=== PATIENT | male | born 1940 | race Caucasian/White ===

== ENCOUNTER 2022-08-15 21:08 | Inpatient (IN) | payer MEDICAID ==
[~2022-08-15] VITALS: Ht 188 cm; Wt 98.0 kg
--- NOTE | 2022-08-15 21:08 | NUR ---
PT SHARRON ALS. TAKEN TO BED 1
--- NOTE | 2022-08-15 21:12 | NUR ---
ARRIVED BY ACLS PARAMEDICS. PT BROUGHT IN FROM [facility]. PT BROUGHT IN FOR ABNORMAL LABS. PER ADJUNCT MATHEMATICS INSTRUCTOR IEM=[id number]. C/O DECREASED URINE OUTPUT AND BLOOD IN THE URINE. PT HAS A HX OF ENCEPHALOPATHY. PER ADJUNCT MATHEMATICS INSTRUCTOR, PT'S MENTATION IS AT BASELINE. PT WITHDRAWS TO PAINFUL STIMULI. HX OF RESPITORY FAILURE. RT AT BS. CONNECTED TRACH TO VENT. G-TUBE IN PLACE. F/C IN PLACE. +BILATERAL UPPER EXTREMITY EDEMA NOTED. PT AWAITING TO BE SEEN.
[2022-08-15 21:13] VITALS: BP 121/61; PULSE 85; RESP 20; TEMP 98.2; O2SAT 98
[2022-08-15 21:23] VITALS: PULSE 81; PULSE 88; RESP 18; O2SAT 100
--- NOTE | 2022-08-15 21:41 | NUR ---
EKG IN PROGRESS.
[2022-08-15 22:23] LABS: HEMATOCRIT 25.7 % (36-52); HEMOGLOBIN 8.5 g/dL (12.0-18.0); MEAN CORPUSCULAR HEMOGLOBIN 29 pg (27-31); MEAN CORPUSCULAR HGB CONC 33 g/dL (33-37); MEAN CORPUSCULAR VOLUME 88.7 fL (80-94); PLATELET COUNT (AUTO) 85 K/uL (140-450); RED BLOOD CELL COUNT(AUTO) 2.89 MIL/uL (4.20-6.10); RED CELL DISTRIBUTION WIDTH 17.9 % (11.6-13.7); WHITE BLOOD COUNT (AUTO) 24.1 K/uL (4.8-10.8)
[2022-08-15 22:29] LABS: PROTHROMBIN TIME 10.8 secs (10.8-13.4)
[2022-08-15 22:32] LABS: ALBUMIN 2.3 g/dL (3.4-5.0); ASPARTATE AMINOTRANSFERASE 57 U/L (15-37); CARBON DIOXIDE 29.1 mmol/L (21-32); CHLORIDE 91 mmol/L (98-107); CREATININE 3.9 mg/dL (0.6-1.3); GLUCOSE 104 mg/dL (74-106); POTASSIUM 5.1 mmol/L (3.5-5.1); SODIUM SERUM 130 mmol/L (136-145); TOTAL BILIRUBIN 1.2 mg/dL (0.0-1.0)
[2022-08-15 22:37] LABS: UREA NITROGEN, BLOOD 130 mg/dL (7-18)
[2022-08-15 22:57] LABS: BASOPHILS % (MANUAL) 0 % (0-2); EOSINOPHILS % (MANUAL) 0 % (0-4); MONOCYTES % (MANUAL) 2 % (5-12)
[2022-08-15 22:58] LABS: BLASTS, MANUAL % 3 % (0-0); LYMPHOCYTES % (MANUAL) 12 % (20-46); METAMYELOCYTES % 5 % (0-0); MYELOCYTES % 2 % (0-0)
[2022-08-15] MEDS ORDERED: NACL 0.9% 1,000 ML IV ONE ×2 (23:10)
[2022-08-15] MEDS ORDERED: VANCOMYCIN 1,000 MG in DEXTROSE 5% 250 ML IV ONE (23:10)
[2022-08-15] MEDS ORDERED: PIPERACILLIN/TAZOBACTAM 3.375 GM in DEXTROSE 5% 50 ML IV ONE (23:10)
[2022-08-15 23:23] LABS: APPEARANCE,URINE TURBID (CLEAR); BILIRUBIN,URINE NEGATIVE (NEGATIVE); BLOOD, URINE 3+ (NEGATIVE); COLOR,URINE RED (YELLOW); LEUKOCYTE ESTERASE ,URINE 3+ (NEGATIVE); NITRITE, URINE POSITIVE (NEGATIVE); UGLUCOSE TRACE (NEGATIVE)
[2022-08-15 23:34] LABS: RBC,URINE TOO NUMEROUS TO COUN /HPF (0-5); RED BLOOD CELL CASTS,URINE 0-10 /LPF (None Seen); YEAST,URINE None Seen /HPF (None Seen)
[2022-08-15] MEDS ORDERED: PIPERACILLIN/TAZOBACTAM 3.375 GM VIAL IV ONE (23:37)
[2022-08-15] MEDS ORDERED: VANCOMYCIN 1,000 MG VIAL ONE (23:38)
[2022-08-16] VITALS (22 sets, daily range): BP systolic 97–172; BP diastolic 39–79; PULSE 57–89; RESP 11–17; TEMP 97–98.3; O2SAT 98–100
--- NOTE | 2022-08-16 00:01 | NUR ---
MD. AWARE OF PT'S HYPOTENSION. 2L FLUID BOLUS WIDE OPEN INFUSING AT THIS TIME. MD TO REASSESS HYPOTENSION ONCE FLUID BOLUS IS CONCLUDED.
[2022-08-16] MEDS ORDERED: VANCOMYCIN PER PHARMACY MC PRN (00:10)
[2022-08-16] MEDS ORDERED: DEXTROSE 50% 50 ML SYR IVP PRN (00:10)
[2022-08-16] MEDS ORDERED: NOREPINEPHRINE 8 MG in DEXTROSE 5% 250 ML IV PRN (00:10)
[2022-08-16] MEDS ORDERED: LACTATED RINGERS 1,000 ML IV ONE (00:10)
[2022-08-16] MEDS ORDERED: INSULIN LISPRO SLIDING SCALE 100 UNITS/ML VIAL SUBQ PRN (00:10)
[2022-08-16] MEDS ORDERED: NOREPINEPHRINE 4 MG/4 ML VIAL IV ONE ×2 (00:11→10:35)
--- NOTE | 2022-08-16 00:34 | NUR ---
LEVOPHED WAS STARTED ORDERED. LEVOPHED INITIATED AT 12 MCG/MIN=22.5ML/HR. 8 MG IN 250ML NS BAG. WILL TITRATE ORDERED.
--- NOTE | 2022-08-16 01:10 | NUR ---
PT TOLERATING LEVOPHED DRIP WELL. BP WNL. PT TO BE ADMITTED INTO ICU. HOLDING IN ER AT THIS TIME.
--- NOTE | 2022-08-16 02:11 | NUR ---
DECREASED LEVOPHED TO 10MG/MIN=18.75ML.
--- NOTE | 2022-08-16 02:30 | NUR ---
PT HAD LARGE AMOUNT OF LOOSE LIQUID STOOL BM. DANYELL-CARE PERFORMED WITH COMPLETE LINEN CHANGE.
--- NOTE | 2022-08-16 03:15 | NUR ---
INCREASED LEVOPHED TO 11MCG/MIN=20.62ML/HR. MONITORING BP.
--- NOTE | 2022-08-16 03:19 | NUR ---
PT TAKEN TO CT
--- NOTE | 2022-08-16 04:04 | NUR ---
Patient noted to have existing wounds upon arrival to ER. Photos taken of wound and placed in chart. Physician informed.
[2022-08-16] MEDS ORDERED: PIPERACILLIN/TAZOBACTAM 3.375 GM in DEXTROSE 5% 50 ML IV SCH ×2 (05:00→13:00)
[2022-08-16] MEDS ORDERED: PANT40GR GT (05:31)
[2022-08-16] MEDS ORDERED: ACET-2619 GT (05:31)
[2022-08-16] MEDS ORDERED: VITA1TAB44 PO (05:31)
[2022-08-16] MEDS ORDERED: ATRMDI INH (05:31)
[2022-08-16] MEDS ORDERED: INSU100S5 (05:31)
[2022-08-16] MEDS ORDERED: CHLO473L1 PO (05:31)
[2022-08-16] MEDS ORDERED: [UNRECOGNIZED DRUG - CODE] GT (05:31)
[2022-08-16] MEDS ORDERED: METO5SOL19 GT (05:31)
[2022-08-16] MEDS ORDERED: PIPERACILLIN/TAZOBACTAM 2.25 GM VIAL IV ONE (05:40)
--- NOTE | 2022-08-16 05:50 | NUR ---
PT TRANSFERED TO ICU BED 5. PT ENDORSED TO HEATHER DIMAS. PT WAS TRANSFERED VIA GURNEY ESCORTED BY RN, ER CHARGE, EMT, AND RT. PT IN GAURDED CONDITION. LEVOPHED DRIP AND LR ON GOING. PT TOLERATED TRANSFER. BS REPORT PROVIDED. CHART ENDORSED TO HEATHER.
[2022-08-16] MEDS: PIPERACILLIN/TAZOBACTAM 2.25 GM in DEXTROSE 5% 50 ML IV SCH ×3 (05:54→20:39)
--- NOTE | 2022-08-16 05:55 | NUR ---
Pt. arrived to ICU bed 5, with trach in place and ventilator as well. RN and respiratory therapist with pt. at arrival. Pt. immediately placed on heart monitor and ICU admission done. Pt. with no acute distress. NO sob, Levophed drip in place to left femoral central line in place. Samuels cath in place draining yellow urine. Will cont. to monitor.
--- NOTE | 2022-08-16 07:30 | NUR ---
Report given to Betty ROMERO day shift nurse. Pt. with no acute distress. No change in status.
[2022-08-16] MEDS ORDERED: MAG SULF 2000 MG/WATER PREMIX 50 ML IV PRN (08:00)
--- NOTE | 2022-08-16 08:00 | NUR ---
Received report from charge nurse HEATHER Grijalva. Pt orally intubated with tracheostomy to vent in place. Vent SIMV FIO2 30%, VT 450, RR 10, Peep 5, Flow at 30L. Patient asleep with LR, Levophed, and Zosyn infusing to the left femoral PICC line with dressing in place. No redness or ecchymosis to insertion site. Pt unable to responds to physical stimulation with sternal rub or shaking. Upon auscultation crackles noted in patients lobes. Patient has GTube currently NPO. Abdomen soft with all quadrants hyperactive. Patient skin is not intact with sacral DTI and dried scabs on right heel. Penis swollen with ramirez catheter in place with yellow urine mixed with small specks of blood. No dependent loops. HOB of bed at 30 degrees to prevent aspiration, bed of wheels locked and bed in lowest position, no acute distress or SOB noted. Will continue to follow plan of care.
[2022-08-16] MEDS: LACTATED RINGERS 1,000 ML IV SCH ×2 (09:10→21:35)
[2022-08-16] MEDS ORDERED: ACETAMINOPHEN 325 MG TAB GT PRN (09:15)
[2022-08-16] MEDS ORDERED: ONDANSETRON 4 MG/2 ML VIAL IVP PRN (09:20)
[2022-08-16] MEDS ORDERED: MORPHINE SULFATE 2 MG/ML SYR IVP PRN (09:20)
[2022-08-16] MEDS ORDERED: LORazepam 2 MG/ML VIAL IVP PRN (09:20)
[2022-08-16] MEDS ORDERED: ZOLPIDEM 5 MG TAB PO PRN (09:20)
[2022-08-16] MEDS ORDERED: POTASSIUM CHLORIDE 20% 40 MEQ/15 ML UDC PO PRN (09:20)
[2022-08-16] MEDS ORDERED: ACETAMINOPHEN 650 MG/20.3 ML UDC PO PRN (09:20)
[2022-08-16] MEDS ORDERED: DOCUSATE 100 MG/10 ML UDC PO PRN (09:20)
--- NOTE | 2022-08-16 09:25 | NUR ---
Dr. De Los Santos rounded at patients bedside. wants patients tracheostomy sutures to be removed by RT. Will continue to follow plan of care.
--- NOTE | 2022-08-16 09:42 | NUR ---
PATIENT HAS BEEN SCREENED AND CATEGORIZED HIGH NUTRITION RISK. PATIENT WILL BE SEEN WITHIN 1-2 DAYS OF ADMISSION. 08/16/22-08/18/[address]
--- NOTE | 2022-08-16 10:22 | NUR ---
Dr. Spicer rounded at patients bedside. No new orders received.
--- NOTE | 2022-08-16 10:30 | NUR ---
Received call from dental laboratory technology teacher Mary Kate regarding patients high troponin level of 443.
--- NOTE | 2022-08-16 10:38 | NUR ---
Notified MD Spicer regarding patients troponin levels of 443. Will continue to follow plan of care.
--- NOTE | 2022-08-16 10:42 | NUR ---
Received orders from MD Spicer regarding patients Troponin levels. MD ordered Aspirin 325mg. Will continue to follow plan of care.
--- NOTE | 2022-08-16 11:35 | NUR ---
Spoke with Santi from RT regarding patients removal of tracheostomy stitches. Will continue to follow plan of care.
[2022-08-16] MEDS ORDERED: IPRATROPIUM BROMIDE 17 MCG INH SCH (12:00)
[2022-08-16] MEDS: BLOOD GLUCOSE MONITORING 1 DEV DEV FS SCH ×3 (12:59→21:19)
[2022-08-16] MEDS ORDERED: ACETAMINOPHEN 650 MG/20.3 ML UDC GT PRN (13:48)
--- NOTE | 2022-08-16 19:20 | NUR ---
Endorsed report to practice architect charge nurse HEATHER Reilly for continuity of care.
--- NOTE | 2022-08-16 19:40 | NUR ---
RECEIVED REPORT FROM DAY SHIFT NURSE. PATIENT LYING DOWN IN BED SLEEPING WITH HOB AT 30 DEGREES, SLIGHTLY AROUSABLE TO SHAKING. ON TRACH TO VENT WITH O2 SAT 100%, VENT SETTING SIMV/VC FIO2 28,VT 250, RATE 10,PEEP 5. NO DISTRESS NOTED. SR TO SB ON CASEWORKER. WITH TRIPLE LUMEN LEFT UPPER THIGH FEMORAL LINE INTACT, PATENT, AND INFUSING IVF AND DRIPS PER MD ORDERS. G TUBE IN PLACE ON LEFT UPPER QUADRANT. MARTIN CATH IN PLACE. STAGE 2 ULCER ON SACRAL AREA. REVIEWED PLAN OF CARE WITH PATIENT, PT UNABLE TO COMPREHEND. SAFETY MEASURES IN PLACE. WILL CONTINUE TO MONITOR. Addendum: 08/17/22 at 0352 by HILTON HARRIS RN CORRECTION NOTE: RECEIVED REPORT FROM DAY SHIFT NURSE. PATIENT LYING DOWN IN BED SLEEPING WITH HOB AT 30 DEGREES, SLIGHTLY AROUSABLE TO SHAKING. ON TRACH TO VENT WITH O2 SAT 100%, VENT SETTING SIMV/VC FIO2 28,VT 250, RATE 10,PEEP 5. NO DISTRESS NOTED. SR TO SB ON CASEWORKER. WITH TRIPLE LUMEN LEFT UPPER THIGH FEMORAL LINE INTACT, PATENT, AND INFUSING IVF AND DRIPS PER MD ORDERS. G TUBE IN PLACE ON LEFT UPPER QUADRANT. MARTIN CATH IN PLACE. OPEN WOUND TO SACRAL AREA. REVIEWED PLAN OF CARE WITH PATIENT, PT UNABLE TO COMPREHEND. SAFETY MEASURES IN PLACE. WILL CONTINUE TO MONITOR.
--- NOTE | 2022-08-16 22:00 | NUR ---
DANYELL CARE DONE, CHANGED UNDERPAD AND PUT DRESSING ON SACRAL WOUND.
[2022-08-17] VITALS (32 sets, daily range): BP systolic 88–139; BP diastolic 46–68; PULSE 50–61; RESP 10–22; TEMP 86–98.4; O2SAT 96–100
--- NOTE | 2022-08-17 01:00 | NUR ---
PT IS RESTING. WILL CONTINUE TO MONITOR.
[2022-08-17] MEDS ORDERED: Z-GUARD PASTE TP PRN (03:55)
[2022-08-17] MEDS: PIPERACILLIN/TAZOBACTAM 2.25 GM in DEXTROSE 5% 50 ML IV SCH ×3 (05:16→20:54)
[2022-08-17 05:23] LABS: BASOPHILS % (AUTO) 0.2 % (0.0-2.0); EOSINOPHILS # (AUTO) 0.3 K/uL (0-0.4); EOSINOPHILS % (AUTO) 3.5 % (0.0-4.0); HEMATOCRIT 24.4 % (36-52); HEMOGLOBIN 8.3 g/dL (12.0-18.0); LYMPHOCYTES # (AUTO) 0.9 K/uL (2.0-11.5); LYMPHOCYTES % (AUTO) 9.3 % (20.5-51.1); MEAN CORPUSCULAR HEMOGLOBIN 30 pg (27-31); MEAN CORPUSCULAR HGB CONC 34 g/dL (33-37); MEAN CORPUSCULAR VOLUME 88.2 fL (80-94); MONOCYTES # (AUTO) 0.4 K/uL (0.8-1.0); MONOCYTES % (AUTO) 4.2 % (1.7-9.3); NEUTROPHILS # (AUTO) 7.7 K/uL (1.8-7.7); NEUTROPHILS % (AUTO) 82.8 % (42.2-75.2); PLATELET COUNT (AUTO) 52 K/uL (140-450); RED BLOOD CELL COUNT(AUTO) 2.77 MIL/uL (4.20-6.10); RED CELL DISTRIBUTION WIDTH 18.3 % (11.6-13.7); WHITE BLOOD COUNT (AUTO) 9.3 K/uL (4.8-10.8)
[2022-08-17 06:12] LABS: ANION GAP 9.9 (8-16); CARBON DIOXIDE 29.7 mmol/L (21-32); CHLORIDE 100 mmol/L (98-107); CREATININE 3.4 mg/dL (0.6-1.3); GLUCOSE 93 mg/dL (74-106); POTASSIUM 4.6 mmol/L (3.5-5.1); SODIUM SERUM 135 mmol/L (136-145)
[2022-08-17 06:18] LABS: UREA NITROGEN, BLOOD 112 mg/dL (7-18)
--- NOTE | 2022-08-17 06:30 | NUR ---
LAB RESULT WAS REPORTED BY AIRPORT OPERATIONS COORDINATOR: BUN 112 (CHECK THE PAST RESULT IT IS TRENDING DOWN). MAGNESIUM IS 4.7 HIGH.
--- NOTE | 2022-08-17 06:45 | NUR ---
SEND A MESSAGE TO DR REED FOR MAGNESIUM RESULT 4.7. WAITING FOR RESPONSE.
[2022-08-17] MEDS: LANSOPRAZOLE 30 MG CAPDR GT SCH (06:57)
[2022-08-17] MEDS: BLOOD GLUCOSE MONITORING 1 DEV DEV FS SCH ×4 (07:30→21:04)
--- NOTE | 2022-08-17 07:31 | NUR ---
ENDORSED REPORT TO DAYSNMFT NURSE FOR CONTINUITY OF CARE.
--- NOTE | 2022-08-17 07:58 | NUR ---
RECEIVED ON A MaPSSCAPE R860 VENTILATOR PLUGGED INTO RED OUTLET TOLERATING WELL WITHOUT ADVERSE REACTIONS NOTED TO A CARLOS DCT #8 AIRWAY SECURED WITH A SHEREEN TRACH TIE CUFF PRESSURE CHECKED NOTED AMBU BAG AT BEDSIDE RESTING COMFORTABLY NO DISTRESS NOTED GOOD CHEST RISE DEEP TRACHEAL SUCTION FOR MODERATE SEMI THICK YELLOW WITH BLOOD TINGE SECRETIONS AIRWAY PATENT
[2022-08-17] MEDS ORDERED: VANCOMYCIN 750 MG in NACL 0.9% 250 ML IV SCH (08:00)
[2022-08-17] MEDS: LACTATED RINGERS 1,000 ML IV SCH ×3 (08:19→19:49)
[2022-08-17] MEDS: VIT-B COMP/VIT-C/FOLIC ACID 1 TAB PO SCH (08:32)
[2022-08-17] MEDS: ASPIRIN 325 MG TAB PO SCH (08:32)
[2022-08-17] MEDS ORDERED: PANTOPRAZOLE SODIUM 40 MG GT/PO SCH (09:00)
--- NOTE | 2022-08-17 09:05 | NUR ---
FNS REFERRAL RECEIVED FOR TUBE FEEDING RECOMMENDATION ON 08/17/22. PATIENT HAS BEEN SCREENED HIGH RISK AND WILL BE SEEN WITHIN 1-2 DAYS OF RECEIVING THE FNS CONSULT.
--- NOTE | 2022-08-17 11:39 | NUR ---
WOUND CARE EVALUATION NOTE: SKIN ASSESSMENT DONE WITH THIS 82 Y/O PT [place] [facility] [place] [facility] WITH INITIAL DX ALS FOR ABNORMAL LABS. PAST MEDICAL HX, VDRF, TRACH/PEG, ENCEPHALOPATHY, HYPOKALEMIA, HYPERTENSION, ANOXIC BRAIN DAMAGE, ACUTE KIDNEY FAILURE, TYPE 2 DIABETES. PT ADMITTED WITH PRESSURE ULCER WOUNDS. ALL ABOVE INFORMATION OBTAINED FROM ADMISSION H&P. PT IS SEDATED. SKIN IS WARM AND DRY, BLE NO HAIR GROWTH, +2 EDEMA TO ALL LIMBS. DORSAL PEDAL PULSES PRESENT AND NORMAL. CAPILLARY REFILLED < 2 SEC. X 10 TOES. SCROTAL/PENIS EDEMA. F/C PATENT WITH SMALL AMOUNT YELLOW COLOR URINE AND HEMATURIA OUT PUT OBSERVED. PLAN OF CARE DISCUSSED WITH PRIMARY RN. INTEGUMENTARY: -ORAL MEMBRANE PINK INTACT, LIPS, CHEEKS SKIN DRY, NO OPEN WOUNDS -TRACH SITE DANYELL STOMA SKIN DRY AND CLEAN. SKIN INTACT. - GT SITE DANYELL STOMA WITH SKIN INTACT. -MOISTURE ASSOCIATED SKIN DAMAGE(MASD) TO: B/L GROINS, SCROTAL, SKIN MOIST AND RED -RIGHT HIP PRESSURE INJURY STAGE 1, 2X2CM NON-BLANCHABLE REDNESS, SKIN MUSHY INTACT -PRESSURE INJURY STAGE 2, COCCYX 1X1.5X0.1CM WOUND BED 100% RED TISSUE, MOIST, NO ODOR, DANYELL-WOUND SKIN EXTENDED TO SACRAL DTI, MOIST, PEELING SCABBING SKIN -LEFT HEEL PRESSURE INJURY STAGE 1, 2X3CM NON-BLANCHABLE REDNESS, SKIN MUSHY INTACT -RIGHT HEEL PRESSURE INJURY UN-STAGEABLE 2X2CM DRY STABLE SCAB, DANYELL WOUND SKIN NON-BLANCHABLE SKIN INTACT RECOMMENDATIONS: -APPLY Z GUARD TO R/L GROINS, SCROTAL BID AND PRN IF SOILING -CLEANSE SACRALCOCCYX WITH WOUND CLEANSING SOLUTION AND APPLY Z GUARD COVER WITH FOAM DRESSING QD AND PRN IF SOILING -PAINT RIGHT HEEL WITH BETADINE SWAP STICKS BID AND JOSE -APPLY FOAM DRESSING TO BONY PROMINENCE AND RIGHT HIP AND LEFT HEEL DAILY AND PRN IF SOILING PREVENTION -HEEL PROTECTORS TO BILATERAL HEELS WITH PILLOWS OFFLOADING -POSITIONING: TURN AND REPOSITION PATIENT Q 2H OR SOONER USE PILLOWS TO KEEP BONY PROMINENCES FROM DIRECT CONTACT WITH SURFACES USE REPOSITIONING WEDGES TO PROVIDE 30-DEGREE ANGLE FOR SIDE LYING POSITIONS OFFLOADING OR FOAM DRESSING TO ALL TUBING TO PREVENT MEDICAL DEVICES RELATED PRESSURE INJURY -RE-EVALUATING AND MANAGING INCONTINENCE MONITOR SKIN CONDITION DURING POSITION CHANGE DO NOT MASSAGE REDNESS, BONY PROMINENCES FREQUENT DANYELL-CARE AND PROVIDE BARRIER CREAMS PRN IF SOILING MOISTURE CONTROL BY F/C, ABSORBENT PAD TO WICK AND HOLD MOISTURE. KEEP SKIN DRY AND PROTECT FROM FRICTION -MANAGE FRICTION/SHEAR/MOBILITY KEEP HOB AT THE LOWEST LEVEL OF ELEVATION NO MORE THAN 30 DEGREES UNLESS OTHERWISE CONTRAINDICATED USE LIFT SHEET OR TRANSFER DEVICE TO MOVE PATIENT AND PREVENT LATERAL SHEER. CONSIDER TRAPEZE IF APPROPRIATE PROTECT HEELS, ELBOWS BONY PROMINENCES WITH SKIN BERRIES OR FOAM DRESSING IF EXPOSED TO FRICTION OFFLOAD BILATERAL HEELS BY PLACING PILLOWS UNDER CALVES AT ALL TIMES, UNLESS OTHERWISE CONTRAINDICATED -PRESSURE REDISTRIBUTION SURFACE THERAPY JÚNIOR ISOFLEX DANA MATTRESS -NUTRITION: PLEASE FOLLOW RD RECOMMENDATIONS AND OFFER NUTRITION SUPPLEMENTS IF ORDERED.
--- NOTE | 2022-08-17 11:54 | NUR ---
STABLE NO APPARENT DISTRESS NOTED GOOD CHEST RISE DEEP TRACHEAL SUCTION FOR SMALL SEMI THICK YELLOW WITH BLOOD TINGE SECRETIONS AIRWAY PATENT
[2022-08-17] MEDS ORDERED: FOAM DRESSING TP PRN (13:35)
[2022-08-17] MEDS: FOAM DRESSING TP SCH (14:21)
--- NOTE | 2022-08-17 14:35 | NUR ---
08/17/22 RD INITIAL ASSESSMENT COMPLETED PLEASE REFER TO NUTRITION ASSESSMENT UNDER CARE ACTIVITY FOR ESTIMATED NUTRITIONAL NEEDS. 1. RD TUBE FEEDING RECOMMEND IS NEPRO @45ML/HR WITH FWF 200 ML Q4H TOLERATED. THIS WILL PROVIDE 1,944 CALORIES AND 81 GRAMS OF PROTEIN, MEETING 75% OF ESTIMATED NUTRITIONAL NEEDS. 2. RD RECOMMENDS RADHA BID FOR WOUNDS, WHICH WILL PROVIDE 160 CALORIES AND 5 GRAMS OF PROTEIN. 3. RD TO FOLLOW-UP 2-3 DAYS, HIGH RISK RADHA FRANK RD
--- NOTE | 2022-08-17 15:55 | NUR ---
Water Control Supervisor COUPLER spoke with pts. son, Alexandre who resides in [place]. Son was able to assist in answering questions for a dishcharge Planning assessment as pt. is currently on a vent. Son stated pt. does not have a phone. Phone listed on face sheet with pts. address is actually son's phone number. Pt. resides at [facility] in [place]. Pt. has been there for the past 4 months. COUPLER will remain available as needed.
--- NOTE | 2022-08-17 15:59 | NUR ---
DC PLANNING 82 YO MALE PATIENT [place] [facility] [place] FOR HYPOTENSION AND SIGNS OF SEPSIS.PATIENT WAS FOUND TO HAVE SEVERE UTI AND PNEUMONIA.PRIMARY HX OF COPD,ASTHMA,AND DM2. TRACH TO VENT WITH G-TUBE.COVID NEGATIVE. ON LEVOPHED AND ZOSYN. NEPHRO ON BOARD FOR HIGH CREATINE LEVEL.MIGHT NEED HEMODIALYSIS.CM TO FOLLOW. Addendum: 08/27/22 at 1229 by KRISTINA SEPULVEDA CM DC PLANNING atient persistently bradycardic due to hypothyroidism DC PLANNING. PATIENT PERSISTENTLY BRADYCARDIC DUE TO HYPOTHYROIDISM.ON IV LEVOTHYROXINE AND WILL BE SWITCHED TO PO UPON DISCHARGE.ENDOCRINE CX DONE.PATIENT WILL BE DOWNGRADED TO TELEMETRY ON MEROPENEM.ID,CARDIO ON BOARD.CONSERVATIVE MGT PER CARDIO.CM TO FOLLOW. Addendum: 08/28/22 at 1405 by EVAN HORN CM RECEIVED ORDER FOR PATIENT TO GO BACK TO SNF FOR CONTINUE OF CARE. FA[place] ALL CLINIC[place] [facility] SPOKE WITH CARMEL AT [facility] AT [address] [place] [address]. PATIENT WILL BE GOING TO ROOM 21A UNDER DR RASMUSSEN. TRANSPORTATION WAS ARRANGED WITH [facility] WITH A 1500 CRYSTAL EVALUATOR TIME. NURSE ANNA MARIE AND SON JOSR AWARE OF THE ABOVE INFORMATION.
[2022-08-17] MEDS: ALBUMIN HUMAN 25% 100 ML IV SCH (16:31)
--- NOTE | 2022-08-17 16:42 | NUR ---
STABLE NO EVIDENCE FOR PULMONARY DISTRESS NOTED GOOD CHEST DEEP TRACHEAL SUCTION FOR MODERATE SEMI THICK YELLOW WITH BLOOD TINGE SECRETIONS AIRWAY PATENT
[2022-08-17] MEDS: IPRATROPIUM 0.02% 0.5 MG/2.5 ML NEBU INH PRN (19:18)
--- NOTE | 2022-08-17 22:03 | NUR ---
2140 SPUTUM COLLECTED AND SENT TO LAB
--- NOTE | 2022-08-17 22:35 | NUR ---
DR. FELIX (ID DOCTOR) CALLED, UPDATED ON PATIENT'S MEDICAL CONDITION; INFORMED HIM TOO THAT PATIENT IS HAVING SUBNORMAL TEMP 85-91F; NO FURTHER ORDER MADE.
[2022-08-18] VITALS (34 sets, daily range): BP systolic 91–134; BP diastolic 44–74; PULSE 47–62; RESP 14–17; TEMP 86.5–97; O2SAT 98–100
[2022-08-18] MEDS: GAUZE TP SCH ×2 (01:00→12:22)
[2022-08-18] MEDS: Z-GUARD PASTE TP SCH ×2 (01:00→12:22)
[2022-08-18] MEDS: PIPERACILLIN/TAZOBACTAM 2.25 GM in DEXTROSE 5% 50 ML IV SCH ×2 (05:31→12:22)
[2022-08-18 05:33] LABS: BASOPHILS % (AUTO) 0.5 % (0.0-2.0); EOSINOPHILS # (AUTO) 0.4 K/uL (0-0.4); EOSINOPHILS % (AUTO) 4.2 % (0.0-4.0); HEMATOCRIT 21.8 % (36-52); HEMOGLOBIN 7.4 g/dL (12.0-18.0); LYMPHOCYTES # (AUTO) 1.2 K/uL (2.0-11.5); LYMPHOCYTES % (AUTO) 14.3 % (20.5-51.1); MEAN CORPUSCULAR HEMOGLOBIN 30 pg (27-31); MEAN CORPUSCULAR HGB CONC 34 g/dL (33-37); MEAN CORPUSCULAR VOLUME 87.8 fL (80-94); MONOCYTES # (AUTO) 0.2 K/uL (0.8-1.0); MONOCYTES % (AUTO) 2.3 % (1.7-9.3); NEUTROPHILS # (AUTO) 6.6 K/uL (1.8-7.7); NEUTROPHILS % (AUTO) 78.7 % (42.2-75.2); PLATELET COUNT (AUTO) 46 K/uL (140-450); RED BLOOD CELL COUNT(AUTO) 2.48 MIL/uL (4.20-6.10); RED CELL DISTRIBUTION WIDTH 18.4 % (11.6-13.7); WHITE BLOOD COUNT (AUTO) 8.4 K/uL (4.8-10.8)
[2022-08-18] MEDS: ALBUMIN HUMAN 25% 100 ML IV SCH (05:34)
[2022-08-18 05:57] LABS: ANION GAP 14.8 (8-16); CARBON DIOXIDE 27.4 mmol/L (21-32); CHLORIDE 100 mmol/L (98-107); CREATININE 3.4 mg/dL (0.6-1.3); GLUCOSE 100 mg/dL (74-106); POTASSIUM 4.2 mmol/L (3.5-5.1); SODIUM SERUM 138 mmol/L (136-145); UREA NITROGEN, BLOOD 104 mg/dL (7-18)
[2022-08-18] MEDS ORDERED: NOREPINEPHRINE 4 MG/4 ML VIAL IV ONE (06:26)
[2022-08-18] MEDS: NOREPINEPHRINE 8 MG in DEXTROSE 5% 250 ML IV PRN (06:36)
[2022-08-18] MEDS: BLOOD GLUCOSE MONITORING 1 DEV DEV FS SCH ×3 (06:43→18:04)
[2022-08-18] MEDS: LANSOPRAZOLE 30 MG CAPDR GT SCH (06:46)
--- NOTE | 2022-08-18 07:15 | NUR ---
Opening Received report on pt. Pt obtunded, does not follow commands, does not open eyes to shaking or pain. Pt with levophed drip and albumin infusing to right femoral TLC. GT with tube feeding. Samuels in place draining urine to gravity. Skin not intact, BUE with 3+ pitting edema. HOB 30 degrees, bilateral heels elevated with heel boots and offloaded with pillows, BUE elevated with pillows. Addendum: 08/19/22 at 1117 by Agency Nurse 18, RN HEATHER CORRECTION: left femoral TLC, not right.
--- NOTE | 2022-08-18 08:15 | NUR ---
Page out to exchange for Dr. De Los Santos.
--- NOTE | 2022-08-18 08:25 | NUR ---
Reported magnesium 4.[address] De Los Santos, Dr. De Los Santos states no new orders for magnesium but change amount of water flush. Noted and carried out. Addendum: 08/18/22 at 1058 by Agency Nurse 18, RN RN Dr. De Los Santos also states OK for pt to receive PICC line if we remove femoral line.
[2022-08-18] MEDS: VIT-B COMP/VIT-C/FOLIC ACID 1 TAB PO SCH (08:29)
[2022-08-18] MEDS: ASPIRIN 325 MG TAB PO SCH (08:29)
--- NOTE | 2022-08-18 09:12 | NUR ---
FNS CONSULT RECEIVED FOR TUBE FEEDING RECOMMENDATION ON 08/18/22. PATIENT WAS SEEN BY RD YESTERDAY AND TUBE FEEDING RECOMMENDATION HAS ALREADY BEEN PRESCRIBED. PATIENT WILL BE FOLLOWED UP ON IN 1-2 DAYS OF GETTING NEW CONSULT. RADHA FRANK RD
--- NOTE | 2022-08-18 10:30 | NUR ---
Pt noted with large amount of bleeding from arm from blood draw site. Applied clean gauze and pressure, bleeding controlled. Dr. Antonio at bedside and aware of situation, ordered CBC.
[2022-08-18 11:11] LABS: EOSINOPHILS # (AUTO) 0.3 K/uL (0-0.4); PLATELET COUNT (AUTO) 39 K/uL (140-450)
[2022-08-18 12:07] LABS: BASOPHILS % (AUTO) 0.5 % (0.0-2.0); LYMPHOCYTES # (AUTO) 1.1 K/uL (2.0-11.5); LYMPHOCYTES % (AUTO) 14.5 % (20.5-51.1); MEAN CORPUSCULAR HEMOGLOBIN 30 pg (27-31); MEAN CORPUSCULAR HGB CONC 34 g/dL (33-37); MEAN CORPUSCULAR VOLUME 87.9 fL (80-94); MONOCYTES # (AUTO) 0.2 K/uL (0.8-1.0); MONOCYTES % (AUTO) 3.1 % (1.7-9.3); NEUTROPHILS % (AUTO) 77.9 % (42.2-75.2); RED BLOOD CELL COUNT(AUTO) 2.27 MIL/uL (4.20-6.10); RED CELL DISTRIBUTION WIDTH 18.1 % (11.6-13.7); WHITE BLOOD COUNT (AUTO) 7.7 K/uL (4.8-10.8)
[2022-08-18 12:17] LABS: HEMOGLOBIN 6.7 g/dL (12.0-18.0)
[2022-08-18 12:18] LABS: HEMATOCRIT 19.9 % (36-52)
[2022-08-18] MEDS: FOAM DRESSING TP SCH (12:22)
[2022-08-18] MEDS: MIDODRINE 5 MG TAB PO SCH ×2 (12:22→18:06)
--- NOTE | 2022-08-18 12:25 | NUR ---
Lab called and reported Hemoglobin 6.7 and Hematocrit 19.8. Lab report repeated and to lab and confirmed. Lab report for H/H given to Whitney RN, pt.'s primary RN.
--- NOTE | 2022-08-18 12:37 | NUR ---
Jessi Durbin called and notified of pt.'s H/H = 6.7 and 19.8. No immediate orders received.
--- NOTE | 2022-08-18 12:42 | NUR ---
MD orders received for blood transfusion. See order set.
--- NOTE | 2022-08-18 14:43 | NUR ---
Pt. needs blood transfusion. Pt. is not able to provide consent due to condition. Pt.'s son Alexandre Wray called at cell [phone] and obtained consent for blood transfusion via telephonic intervention. All questions answered and he was given opportunity to ask. Whitney ROMERO verified consent via telephone as well. Written consent filled and signed by RNs.
--- NOTE | 2022-08-18 15:00 | NUR ---
Blood transfusion initiated with 1 unit PRBC per MD order. Blood transfusion consent obtained from pt's son Alexandre Wray witnessed with second RN. Blood unit and pt verified and checked with second RN witness. Pt currently in no signs of pain or distress. VS stable.
--- NOTE | 2022-08-18 15:15 | NUR ---
15 minutes after initiating blood transfusion, no adverse reactions noted. Pt in no signs of pain or distress. Vitals monitored and documented on blood transfusion flowsheet.
--- NOTE | 2022-08-18 18:00 | NUR ---
Blood transfusion completed, no adverse reactions noted. Pt in no signs of pain or distress.
--- NOTE | 2022-08-18 18:53 | NUR ---
Closing Pt remains obtunded, trach to vent. Pt currently off levophed. Pt received 1 unit PRBC, tolerated well. Samuels with urine draining to gravity. GT with tube feeding. Will endorse plan of care to RN.
[2022-08-18] MEDS: MEROPENEM 500 MG in NACL 0.9% 50 ML IV SCH (20:35)
[2022-08-18] MEDS ORDERED: MEROPENEM 1,000 MG in NACL 0.9% 50 ML IV SCH (21:00)
[2022-08-18] MEDS ORDERED: VANCOMYCIN 750 MG in DEXTROSE 5% 250 ML IV SCH (21:00)
[2022-08-18] MEDS ORDERED: VANCOMYCIN 750 MG in NACL 0.9% 250 ML IV SCH (21:00)
[2022-08-19] VITALS (32 sets, daily range): BP systolic 96–147; BP diastolic 40–70; PULSE 40–56; RESP 14–20; TEMP 95.5–97.5; O2SAT 96–100
[2022-08-19] MEDS: Z-GUARD PASTE TP SCH ×2 (01:07→12:52)
[2022-08-19] MEDS: GAUZE TP SCH ×2 (01:08→12:51)
--- NOTE | 2022-08-19 01:15 | NUR ---
RECEIVED REPORT FROM HEATHER AGUIRRE FOR CONTINUITY OF CARE. PATIENT WITH TRACH TO VENT, NO S/S OF RESPIRATORY DISTRESS. TUBE FEEDING NEPRO AT 20 MLS/HR TOLERATING WELL. MARTIN CATHETER DRAINING BY GRAVITY. BED WHEELS LOCKED IN LOW POSITION. SUCTIONED SECRETIONS NEEDED.
[2022-08-19] MEDS: NOREPINEPHRINE 8 MG in DEXTROSE 5% 250 ML IV PRN (04:54)
[2022-08-19 05:28] LABS: BASOPHILS % (AUTO) 0.5 % (0.0-2.0); EOSINOPHILS # (AUTO) 0.3 K/uL (0-0.4); EOSINOPHILS % (AUTO) 4.7 % (0.0-4.0); HEMOGLOBIN 8.3 g/dL (12.0-18.0); LYMPHOCYTES # (AUTO) 1.5 K/uL (2.0-11.5); LYMPHOCYTES % (AUTO) 21.2 % (20.5-51.1); MEAN CORPUSCULAR HEMOGLOBIN 29 pg (27-31); MEAN CORPUSCULAR HGB CONC 35 g/dL (33-37); MEAN CORPUSCULAR VOLUME 83.3 fL (80-94); MONOCYTES # (AUTO) 0.3 K/uL (0.8-1.0); MONOCYTES % (AUTO) 4.5 % (1.7-9.3); NEUTROPHILS # (AUTO) 4.9 K/uL (1.8-7.7); NEUTROPHILS % (AUTO) 69.1 % (42.2-75.2); PLATELET COUNT (AUTO) 38 K/uL (140-450); RED BLOOD CELL COUNT(AUTO) 2.88 MIL/uL (4.20-6.10); RED CELL DISTRIBUTION WIDTH 19.6 % (11.6-13.7); WHITE BLOOD COUNT (AUTO) 7.1 K/uL (4.8-10.8)
[2022-08-19 05:54] LABS: ANION GAP 12.9 (8-16); CARBON DIOXIDE 29.2 mmol/L (21-32); CHLORIDE 102 mmol/L (98-107); CREATININE 3.5 mg/dL (0.6-1.3); GLUCOSE 91 mg/dL (74-106); POTASSIUM 4.1 mmol/L (3.5-5.1); SODIUM SERUM 140 mmol/L (136-145)
[2022-08-19 06:03] LABS: UREA NITROGEN, BLOOD 94 mg/dL (7-18)
[2022-08-19] MEDS: BLOOD GLUCOSE MONITORING 1 DEV DEV FS SCH ×4 (06:28→17:17)
[2022-08-19] MEDS: LANSOPRAZOLE 30 MG CAPDR GT SCH (06:29)
[2022-08-19] MEDS: MIDODRINE 5 MG TAB PO SCH ×3 (06:30→18:23)
--- NOTE | 2022-08-19 07:15 | NUR ---
Opening Received report on pt. Pt obtunded, does not follow commands, moves legs to painful stimuli. Pt in no signs of pain or distress, trach to vent FiO2 24%. Pt also currently on levophed started at 0450 this morning per report, infusing to left femoral line. GT with tube feeding. Samuels with urine draining to gravity. BUE with pitting edema. Bilateral heels with heel lift boots, offloaded with pillows.
--- NOTE | 2022-08-19 07:30 | NUR ---
RECEIVED ON A OxehealthSCAPE R860 VENTILATOR PLUGGED INTO RED OUTLET TOLERATING WELL WITHOUT ADVERSE REACTIONS NOTED TO A PADMINILEY #8 AIRWAY SECURED WITH A SHEREEN TRACH TIE INCREASED MECHANICAL Vt TO 500ml (6ml/dn=307hr NIH PBW) LINDSAY/DENI STEWARDESSES TEACHER'S NOTIFIED CUFF PRESSURE CHECKED NOTED AMBU BAG AT BEDSIDE STABLE RESPONSIVE ONLY TO TRACHEAL PHYSICAL STIMULUS (SUCTIONING) GOOD CHEST RISE DEEP TRACHEAL SUCTIONING FOR MODERATE SEMI THICK YELLOW WITH BLOOD TINGE SECRETIONS OROPHARYNGEAL SUCTION FOR LARGE GELATINOUS YELLOW/HAZY SECRETIONS AIRWAY PATENT
[2022-08-19] MEDS: IPRATROPIUM 0.02% 0.5 MG/2.5 ML NEBU INH PRN (07:31)
[2022-08-19] MEDS: ASPIRIN 325 MG TAB PO SCH (09:00)
[2022-08-19] MEDS: VIT-B COMP/VIT-C/FOLIC ACID 1 TAB PO SCH (09:13)
[2022-08-19] MEDS: MEROPENEM 500 MG in NACL 0.9% 50 ML IV SCH ×2 (09:15→20:17)
[2022-08-19] MEDS: NACL 0.9% 1,000 ML IV SCH (09:49)
--- NOTE | 2022-08-19 11:25 | NUR ---
STABLE RESTING COMFORTABLY NO INDICATION OF PULMONARY DISTRESS NOTED EQUAL CHEST RISE GOOD AERATION THROUGHOUT BILATERAL LUNG DE [place] GARZA AIRWAY PATENT
--- NOTE | 2022-08-19 11:56 | NUR ---
08/19/22 RD FOLLOW UP COMPLETED PLEASE REFER TO NUTRITION ASSESSMENT UNDER CARE ACTIVITY FOR ESTIMATED NUTRITIONAL NEEDS. 1. RD TUBE FEEDING RECOMMEND IS NEPRO @45ML/HR WITH FWF 200 ML Q4H TOLERATED. THIS WILL PROVIDE 1,944 CALORIES AND 81 GRAMS OF PROTEIN, MEETING 75% OF ESTIMATED NUTRITIONAL NEEDS. 2. RD RECOMMENDS RADHA BID FOR WOUNDS, WHICH WILL PROVIDE 160 CALORIES AND 5 GRAMS OF PROTEIN. 3. RD TO FOLLOW-UP 2-3 DAYS, HIGH RISK RADHA FRANK RD
[2022-08-19] MEDS: FOAM DRESSING TP SCH (12:51)
--- NOTE | 2022-08-19 13:11 | NUR ---
NO SOB NOTED GOOD CHEST RISE DEEP TRACHEAL SUCTION FOR SMALL SEMI THICK WITH BLOOD TINGE SECRETIONS AIRWAY PATENT
--- NOTE | 2022-08-19 14:00 | NUR ---
Placed low air mattress pump on mattress
--- NOTE | 2022-08-19 15:56 | NUR ---
NO APPARENT RESPIRATORY DISTRESS NOTED GOOD CHEST RISE DEEP TRACHEAL SUCTION FOR SMALL SEMI THICK YELLOW WITH BLOOD TINGE SECRETIONS AIRWAY PATENT
--- NOTE | 2022-08-19 16:30 | NUR ---
1 unit platelet transfusion initiated, verified and checked blood with second RN. VS stable and recorded on blood transfusion flowsheet.
--- NOTE | 2022-08-19 16:45 | NUR ---
15 minutes after initiating platelet transfusion, no adverse reactions noted. Vital signs remain stable, noted on blood transfusion flowsheet.
--- NOTE | 2022-08-19 17:45 | NUR ---
1 unit platelet transfusion complete. Pt with no signs of pain or distress. No adverse reactions noted. Vital signs stable noted in blood transfusion flowsheet.
--- NOTE | 2022-08-19 18:40 | NUR ---
Closing Pt in no signs of distress. Remains stable off levophed. Received 1 unit platelet. No BM noted. Sacral dressing and right heel dressing changed. Samuels with urine draining to gravity. GT with feeding. Will endorse plan of care to RN.
--- NOTE | 2022-08-19 19:10 | NUR ---
TRANSFER OF CARE FROM DAY SHIFT, REPORT RECEIVED FROM GRETA ROMERO. RECEIVED PATIENT LYING IN BED; THIS PATIENT IS OBTUNDED, BUT HAS INTERMITTENT MOVEMENT OF THE LOWER EXTREMITIES SECONDARY TO TACTILE STIMULATION. PATIENT HAS TRACHEOSTOMY WITH THE FOLLOWING VENT SETTINGS: MODE = AC/VC, FIO2 = 24%, VT = 500, R = 14, AND PEEP = 5. PATIENT HAS GTUBE AND HAS NEPHRO RUNNING AT 20ML/HR. PATIENT HAS LEFT FEMORAL TLC. PATIENT HAS MARTIN CATHETER IN PLACE WITH 150CC CLEAR YELLOW URINE. PATIENT HAS THE FOLLOWING MEDICATION CURRENTLY INFUSING NORMAL SALINE @ 70ML/HR. VITAL SIGNS AT START OF SHIFT ARE FOLLOWS: TEMP = 97.0F, HR = 40, R = 14, O2 SAT = 99%, AND BP = 124/56. WILL CONTINUE TO MONITOR PATIENT FOR ANY CHANGES IN CONDITION AND NOTIFY MD ACCORDINGLY.
[2022-08-19 19:34] LABS: BASOPHILS % (AUTO) 0.9 % (0.0-2.0); EOSINOPHILS # (AUTO) 0.2 K/uL (0-0.4); EOSINOPHILS % (AUTO) 3.8 % (0.0-4.0); HEMATOCRIT 22.4 % (36-52); HEMOGLOBIN 7.8 g/dL (12.0-18.0); LYMPHOCYTES # (AUTO) 1.6 K/uL (2.0-11.5); LYMPHOCYTES % (AUTO) 31.4 % (20.5-51.1); MEAN CORPUSCULAR HEMOGLOBIN 29 pg (27-31); MEAN CORPUSCULAR HGB CONC 35 g/dL (33-37); MEAN CORPUSCULAR VOLUME 82.7 fL (80-94); MONOCYTES # (AUTO) 0.2 K/uL (0.8-1.0); MONOCYTES % (AUTO) 4.3 % (1.7-9.3); NEUTROPHILS % (AUTO) 59.6 % (42.2-75.2); PLATELET COUNT (AUTO) 51 K/uL (140-450); RED BLOOD CELL COUNT(AUTO) 2.71 MIL/uL (4.20-6.10); RED CELL DISTRIBUTION WIDTH 19.6 % (11.6-13.7); WHITE BLOOD COUNT (AUTO) 5.1 K/uL (4.8-10.8)
[2022-08-20] VITALS (32 sets, daily range): BP systolic 113–167; BP diastolic 46–88; PULSE 35–60; RESP 14–24; TEMP 90.1–97; O2SAT 97–100
[2022-08-20] MEDS: BLOOD GLUCOSE MONITORING 1 DEV DEV FS SCH ×4 (00:22→18:35)
[2022-08-20] MEDS: NACL 0.9% 1,000 ML IV SCH ×2 (00:25→14:21)
[2022-08-20] MEDS: GAUZE TP SCH ×2 (01:00→13:29)
[2022-08-20] MEDS: Z-GUARD PASTE TP SCH ×2 (01:00→13:29)
[2022-08-20 05:26] LABS: BASOPHILS % (AUTO) 0.5 % (0.0-2.0); EOSINOPHILS # (AUTO) 0.2 K/uL (0-0.4); EOSINOPHILS % (AUTO) 5.6 % (0.0-4.0); HEMATOCRIT 22.1 % (36-52); HEMOGLOBIN 7.6 g/dL (12.0-18.0); LYMPHOCYTES # (AUTO) 1.7 K/uL (2.0-11.5); LYMPHOCYTES % (AUTO) 38.8 % (20.5-51.1); MEAN CORPUSCULAR HEMOGLOBIN 29 pg (27-31); MEAN CORPUSCULAR HGB CONC 35 g/dL (33-37); MEAN CORPUSCULAR VOLUME 83.1 fL (80-94); MONOCYTES # (AUTO) 0.3 K/uL (0.8-1.0); MONOCYTES % (AUTO) 6.6 % (1.7-9.3); NEUTROPHILS # (AUTO) 2.1 K/uL (1.8-7.7); NEUTROPHILS % (AUTO) 48.5 % (42.2-75.2); PLATELET COUNT (AUTO) 49 K/uL (140-450); RED BLOOD CELL COUNT(AUTO) 2.67 MIL/uL (4.20-6.10); RED CELL DISTRIBUTION WIDTH 20.1 % (11.6-13.7); WHITE BLOOD COUNT (AUTO) 4.3 K/uL (4.8-10.8)
[2022-08-20 05:46] LABS: ANION GAP 14.8 (8-16); CHLORIDE 104 mmol/L (98-107); CREATININE 3.3 mg/dL (0.6-1.3); GLUCOSE 95 mg/dL (74-106); POTASSIUM 3.8 mmol/L (3.5-5.1); SODIUM SERUM 140 mmol/L (136-145); UREA NITROGEN, BLOOD 93 mg/dL (7-18)
[2022-08-20] MEDS: MIDODRINE 5 MG TAB PO SCH ×3 (06:35→21:49)
[2022-08-20] MEDS: LANSOPRAZOLE 30 MG CAPDR GT SCH (06:35)
--- NOTE | 2022-08-20 07:29 | NUR ---
TRANSFER OF CARE TO DAY SHIFT, CARE OF PATIENT ENDORSED TO RYANNE Andino RN
--- NOTE | 2022-08-20 07:53 | NUR ---
RECEIVED PT ON VENT CARESCAPE 1536. VENT SETTINGS AC/VC 500 RR 14 +5 24% FIO2. VENT PLUGGED INTO RED OUTLETS WITH AMBU BAG AT BEDSIDE. PT IS TOLERATING VENT SETTINGS WELL WITH NO RESPIRATORY DISTRESS NOTED. SXN PT SMALL THICK BLOOD TINGED. VENT ALARMS SET WITHIN RANGE AND CAN BE HEARD FROM RN STATION. WILL CONTINUE TO MONITOR.
[2022-08-20] MEDS: MEROPENEM 500 MG in NACL 0.9% 50 ML IV SCH ×2 (09:16→21:49)
[2022-08-20] MEDS: ASPIRIN 325 MG TAB PO SCH (09:18)
[2022-08-20] MEDS: PANTOPRAZOLE 40 MG INJ VIAL IVP SCH (09:18)
[2022-08-20] MEDS: VIT-B COMP/VIT-C/FOLIC ACID 1 TAB PO SCH (09:19)
[2022-08-20] MEDS ORDERED: ATROPINE 0.4 MG/ML VIAL IVP SCH (10:45)
[2022-08-20] MEDS: FOAM DRESSING TP SCH (13:29)
[2022-08-21] VITALS (30 sets, daily range): BP systolic 100–156; BP diastolic 45–74; PULSE 41–101; RESP 13–29; TEMP 96–98.7; O2SAT 95–100
[2022-08-21] MEDS: BLOOD GLUCOSE MONITORING 1 DEV DEV FS SCH ×4 (00:08→18:00)
[2022-08-21] MEDS: GAUZE TP SCH ×2 (01:07→13:07)
[2022-08-21] MEDS: Z-GUARD PASTE TP SCH ×2 (01:07→13:07)
[2022-08-21] MEDS: NACL 0.9% 1,000 ML IV SCH ×2 (04:01→19:38)
[2022-08-21 05:31] LABS: BASOPHILS % (AUTO) 0.9 % (0.0-2.0); EOSINOPHILS # (AUTO) 0.1 K/uL (0-0.4); EOSINOPHILS % (AUTO) 4.5 % (0.0-4.0); HEMATOCRIT 24.6 % (36-52); HEMOGLOBIN 8.4 g/dL (12.0-18.0); LYMPHOCYTES # (AUTO) 1.4 K/uL (2.0-11.5); LYMPHOCYTES % (AUTO) 44.2 % (20.5-51.1); MEAN CORPUSCULAR HEMOGLOBIN 29 pg (27-31); MEAN CORPUSCULAR HGB CONC 34 g/dL (33-37); MEAN CORPUSCULAR VOLUME 84.4 fL (80-94); MONOCYTES # (AUTO) 0.2 K/uL (0.8-1.0); MONOCYTES % (AUTO) 4.9 % (1.7-9.3); NEUTROPHILS # (AUTO) 1.4 K/uL (1.8-7.7); NEUTROPHILS % (AUTO) 45.5 % (42.2-75.2); PLATELET COUNT (AUTO) 49 K/uL (140-450); RED BLOOD CELL COUNT(AUTO) 2.91 MIL/uL (4.20-6.10); RED CELL DISTRIBUTION WIDTH 20.2 % (11.6-13.7); WHITE BLOOD COUNT (AUTO) 3.1 K/uL (4.8-10.8)
[2022-08-21 05:43] LABS: ANION GAP 13.8 (8-16); CARBON DIOXIDE 24.9 mmol/L (21-32); CHLORIDE 107 mmol/L (98-107); CREATININE 3.2 mg/dL (0.6-1.3); GLUCOSE 74 mg/dL (74-106); POTASSIUM 3.7 mmol/L (3.5-5.1); SODIUM SERUM 142 mmol/L (136-145); UREA NITROGEN, BLOOD 86 mg/dL (7-18)
[2022-08-21] MEDS: LANSOPRAZOLE 30 MG CAPDR GT SCH (06:14)
[2022-08-21] MEDS: MIDODRINE 5 MG TAB PO SCH ×3 (06:14→19:45)
--- NOTE | 2022-08-21 07:15 | NUR ---
Received report from night assistant registry nurse HEATHER Romero. Pt tracheostomy to vent in place. Vent AC VC FIO2 24%, VT 500, RR 14, Peep 5. Patient asleep. Left femoral PICC line with dressing in place. No redness or ecchymosis to insertion site dressing dry and intact infusing NS. Upon auscultation breath sounds noted in all patients lobes. Patient has GTube infusing Nepro with free water flush 150ml every 4hrs. Abdomen soft with all quadrants hyperactive. Patient skin is not intact with sacral DTI and dried scabs on right heel. Samuels catheter in place with yellow urine mixed with small specks of blood. No dependent loops. HOB of bed at 30 degrees to prevent aspiration, bed of wheels locked and bed in lowest position, no acute distress or SOB noted. Will continue to follow plan of care.
[2022-08-21] MEDS: PANTOPRAZOLE 40 MG INJ VIAL IVP SCH (09:52)
[2022-08-21] MEDS: VIT-B COMP/VIT-C/FOLIC ACID 1 TAB PO SCH (09:53)
[2022-08-21] MEDS: MEROPENEM 500 MG in NACL 0.9% 50 ML IV SCH ×2 (09:53→20:08)
[2022-08-21] MEDS: FOAM DRESSING TP SCH (13:07)
--- NOTE | 2022-08-21 13:11 | NUR ---
Mary FAUSTIN rounded at patient bedside. Spoke with Mary regarding patients current nutrition. ROXIE said she might recommend a new nutritional goal. Will continue plan of care.
--- NOTE | 2022-08-21 15:02 | NUR ---
08/21/22 RD FOLLOW UP COMPLETED PLEASE REFER TO NUTRITION ASSESSMENT UNDER CARE ACTIVITY FOR ESTIMATED NUTRITIONAL NEEDS. 1. RD RECOMMENDS INCREASING TUBE FEEDING RATE TO 35ML/HR WITH A FWF OF 200ML Q4H, THIS WILL PROVIDE 1512 CALORIES AND 68 GRAMS OF PROTEIN WHICH WILL MEET AT LEAST 75% OF PATIENTS ESTIMATED NUTRITIONAL NEEDS. 2. RD RECOMMENDS CONTINUING WITH RADHA BID FOR WOUNDS WHICH WILL PROVIDE 160 CALORIES AND 5 GRAMS OF PROTEIN. 3. RD TO FOLLOW-UP 2-3 DAYS, HIGH RISK RADHA FRANK RD
[2022-08-21] MEDS ORDERED: DOPamine 400 MG/D5W PREMIX 250 ML IV PRN (17:05)
--- NOTE | 2022-08-21 17:20 | NUR ---
Dr. Adams rounded at patient bedside. Dr. Adams gave new orders. To start patient on dopamine drip at 2 mcg/kg/min and titrate per protocol. MD also ordered for patient to have TSH labs as well. Will continue to follow plan of care. Addendum: 08/21/22 at 1745 by SUNDEEP NASH RN Dr. Puentes
--- NOTE | 2022-08-21 17:45 | NUR ---
Dr. Briones rounded at patient bedside stated to hold of on dopamine drip wants patient to start on hydralazine 10mg IVP every 8 hours to get the BP to drop a lbit and increase the heart rate. Will continue to follow plan of care.
[2022-08-21] MEDS ORDERED: hydrALAZINE 20 MG/ML VIAL IVP PRN (17:50)
[2022-08-21] MEDS ORDERED: hydrALAZINE 10 MG TAB PO SCH (17:55)
--- NOTE | 2022-08-21 19:15 | NUR ---
Endorsed report to certified endoscopy technician nurses Purnima Jeffers. for continuity of care.
--- NOTE | 2022-08-21 19:20 | NUR ---
PATIENT LYING DOWN IN BED SLEEPING WITH HOB AT 30 DEGREES, SLIGHTLY AROUSABLE TO SHAKING. ON TRACH TO VENT WITH O2 SAT 96% VENT SETTING AC/VC FIO2 24,VT 500, RATE 14,PEEP 5. NO DISTRESS NOTED. SB ON INDUSTRIAL ENGINEERING INTERN. WITH TRIPLE LUMEN LEFT UPPER THIGH FEMORAL LINE INTACT, PATENT, AND INFUSING IVF NORMAL SALINE ON . G TUBE IN PLACE ON LEFT UPPER QUADRANT. MARTIN CATH IN PLACE. STAGE 2 ULCER ON SACRAL AREA. EDEMA NOTED ON BOTH UPPER EXTREMITIES. REVIEWED PLAN OF CARE WITH PATIENT, PT UNABLE TO COMPREHEND. SAFETY MEASURES IN PLACE. WILL CONTINUE TO MONITOR. Addendum: 08/22/22 at 0526 by HILTON HARRSI RN RECEIVED REPORT FROM [facility] NURSE ARCENIO ROMERO.
[2022-08-21] MEDS: hydrALAZINE 20 MG/ML VIAL IVP SCH (20:14)
--- NOTE | 2022-08-21 21:15 | NUR ---
CHANGED DRESSING ON LEFT FEMORAL CATHETER SITE.
--- NOTE | 2022-08-21 21:30 | NUR ---
TURN ON JAY HUGGER AND POSITIONED TO THE LOWER EXTREMITIES OF THE PT. PT HAS LOW TEMPERATURE 96' DEG F.
[2022-08-22] VITALS (32 sets, daily range): BP systolic 102–139; BP diastolic 50–67; PULSE 39–66; RESP 12–20; TEMP 96–97.5; O2SAT 96–100
--- NOTE | 2022-08-22 | NUR ---
CLEAN AND CHANGED L FEMORAL CATHETER DRESSING. Addendum: 08/23/22 at 0258 by HILTON HARRIS RN DUPLICATE NOTE. PLEASE SEE 08/21/22 TIME 2698.
[2022-08-22] MEDS: BLOOD GLUCOSE MONITORING 1 DEV DEV FS SCH ×4 (00:08→18:24)
[2022-08-22] MEDS: GAUZE TP SCH ×2 (01:00→13:00)
[2022-08-22] MEDS: Z-GUARD PASTE TP SCH ×2 (01:00→13:00)
[2022-08-22] MEDS: hydrALAZINE 20 MG/ML VIAL IVP SCH ×4 (04:41→18:25)
[2022-08-22] MEDS: LANSOPRAZOLE 30 MG CAPDR GT SCH (05:44)
[2022-08-22] MEDS: MIDODRINE 5 MG TAB PO SCH ×3 (06:01→19:00)
--- NOTE | 2022-08-22 07:10 | NUR ---
ENDORSED PT TO DAYSHIFT NURSE RYANNE ROMERO. ALL QUESTIONS ANSWERED.
[2022-08-22] MEDS: VIT-B COMP/VIT-C/FOLIC ACID 1 TAB PO SCH (09:01)
[2022-08-22] MEDS: PANTOPRAZOLE 40 MG INJ VIAL IVP SCH (09:01)
[2022-08-22] MEDS: MEROPENEM 500 MG in NACL 0.9% 50 ML IV SCH ×2 (09:02→20:08)
--- NOTE | 2022-08-22 11:35 | NUR ---
UROLOGIST (DR. PENNY), AT BEDSIDE. NO NEW ORDERS. Addendum: 08/23/22 at 0534 by Shannan Cervantes RN NOTED ENTERED FOR WRONG DATE AND TIME
[2022-08-22] MEDS: FOAM DRESSING TP SCH (13:00)
[2022-08-22] MEDS ORDERED: DOPamine 400 MG/D5W PREMIX 250 ML IV PRN (14:25)
[2022-08-22] MEDS: NACL 0.9% 1,000 ML IV SCH (14:41)
--- NOTE | 2022-08-22 15:22 | NUR ---
family at bedside at this time
--- NOTE | 2022-08-22 19:05 | NUR ---
TRANSFER OF CARE FROM DAY SHIFT, REPORT RECEIVED FROM RYANNE Andino RN. RECEIVED PATIENT LYING IN BED; THIS PATIENT IS OBTUNDED, BUT HAS INTERMITTENT MOVEMENT OF THE LOWER EXTREMITIES SECONDARY TO TACTILE STIMULATION. PATIENT HAS TRACHEOSTOMY WITH THE FOLLOWING VENT SETTINGS: MODE = AC/VC, FIO2 = 24%, VT = 500, R = 14, AND PEEP = 5. PATIENT HAS GTUBE AND HAS NEPHRO RUNNING AT 20ML/HR. PATIENT HAS LEFT FEMORAL TLC. PATIENT HAS MARTIN CATHETER IN PLACE WITH 100CC CLEAR YELLOW URINE. PATIENT HAS THE FOLLOWING MEDICATION CURRENTLY INFUSING DOPAMINE 400MG @2MCG/KG/ML, NORMAL SALINE @ 70ML/HR. VITAL SIGNS AT START OF SHIFT ARE FOLLOWS: TEMP = 95.9F, HR = 52, R = 14, O2 SAT = 99%, AND BP = 126/62. PATIENT HAS BILATERAL SCD'S IN PLACE AND HAS JAY HUGGER TURNED ON DUE TO LOW BODY TEMP. WILL CONTINUE TO MONITOR PATIENT FOR ANY CHANGES IN CONDITION AND NOTIFY MD ACCORDINGLY.
--- NOTE | 2022-08-22 19:20 | NUR ---
FOOD MIXER REPAIRER AT BEDSIDE FOR BLOOD DRAW
--- NOTE | 2022-08-22 19:42 | NUR ---
MIDODRINE 5MG HELD DUE TO PATIENT WITH BLOOD PRESSURE WITHIN NORMAL LIMITS, BLOOD PRESSURE = 126/62. WILL CONTINUE TO MONITOR PATIENT Addendum: 08/22/22 at 1945 by Shannan Cervantes RN MEDICATION WAS SCHEDULED FOR 1899
--- NOTE | 2022-08-22 20:57 | NUR ---
PT HAS ORDERS TO INCREASE G-TUBE FEEDING RATE TO 35 MLS/HR. PATIENT IS CURRENTLY RECEIVING FEEDING RATE AT 20 MLS/HR. CHECKED RESIDUAL= 10 ML. WILL INCREASE FEEDING RATE TO 30 MLS/HR NOW. WILL RECHECK RESIDUAL AFTER 4 HOURS. AND THEN WILL INCREASE TO GOAL RATE.
--- NOTE | 2022-08-22 22:35 | NUR ---
UROLOGIST (DR. PENYN), AT BEDSIDE. NO NEW ORDERS
[2022-08-23] VITALS (34 sets, daily range): BP systolic 104–163; BP diastolic 6–86; PULSE 6–70; RESP 13–24; TEMP 96.2–98.6; O2SAT 98–100
[2022-08-23] MEDS: NACL 0.9% 1,000 ML IV SCH ×2 (00:22→14:52)
[2022-08-23] MEDS: BLOOD GLUCOSE MONITORING 1 DEV DEV FS SCH ×5 (00:31→23:15)
[2022-08-23] MEDS: Z-GUARD PASTE TP SCH ×2 (01:00→13:06)
[2022-08-23] MEDS: GAUZE TP SCH ×2 (01:00→13:07)
--- NOTE | 2022-08-23 01:16 | NUR ---
RECHECKED RESIDUAL = 5ML. INCREASE G-TUBE FEEDING RATE TO 35 MLS/HR PER MD ORDERED.
--- NOTE | 2022-08-23 03:55 | NUR ---
PATIENT WAS NOTED TO HAVE DRY BLOOD ON AND AROUND TIP OF PENIS DURING AM CARE. THE AREA WAS CLEANED WITH WARM WATER AND SOAP AND THEN PATTED DRY. APPLIED SALINE SOAKED GAUZE AROUND THE PENIS AND THEN COVERED WITH DRY GAUZE TO PREVENT BLOODY DISCHARGE FROM STICKING TO SHEET WHILE PATIENT IS CONFINED TO BED. WILL ENDORSE TO DAY SHIFT TO NOTIFY MD/WOUND CARE NURSE FOR ADDITIONAL ORDERS IF NEEDED. Addendum: 08/23/22 at 0530 by Shannan Cervantes RN PATIENT ALSO WITH SCROTAL EXCORIATION, AND SKIN IRRITATION IN THE FOLDS OF THE PENIS
[2022-08-23] MEDS: LANSOPRAZOLE 30 MG CAPDR GT SCH (05:47)
[2022-08-23 06:03] LABS: BASOPHILS % (AUTO) 0.5 % (0.0-2.0); EOSINOPHILS # (AUTO) 0.4 K/uL (0-0.4); HEMATOCRIT 24.8 % (36-52); HEMOGLOBIN 8.5 g/dL (12.0-18.0); LYMPHOCYTES % (AUTO) 39.4 % (20.5-51.1); MEAN CORPUSCULAR HEMOGLOBIN 29 pg (27-31); MEAN CORPUSCULAR HGB CONC 34 g/dL (33-37); MEAN CORPUSCULAR VOLUME 83.9 fL (80-94); MONOCYTES # (AUTO) 0.2 K/uL (0.8-1.0); MONOCYTES % (AUTO) 3.2 % (1.7-9.3); NEUTROPHILS # (AUTO) 2.6 K/uL (1.8-7.7); NEUTROPHILS % (AUTO) 49.8 % (42.2-75.2); PLATELET COUNT (AUTO) 54 K/uL (140-450); RED BLOOD CELL COUNT(AUTO) 2.95 MIL/uL (4.20-6.10); RED CELL DISTRIBUTION WIDTH 19.9 % (11.6-13.7); WHITE BLOOD COUNT (AUTO) 5.2 K/uL (4.8-10.8)
[2022-08-23 06:26] LABS: ANION GAP 13.8 (8-16); ASPARTATE AMINOTRANSFERASE 34 U/L (15-37); CARBON DIOXIDE 22.8 mmol/L (21-32); CHLORIDE 109 mmol/L (98-107); CREATININE 2.9 mg/dL (0.6-1.3); GLUCOSE 90 mg/dL (74-106); POTASSIUM 3.6 mmol/L (3.5-5.1); SODIUM SERUM 142 mmol/L (136-145); TOTAL BILIRUBIN 0.4 mg/dL (0.0-1.0)
[2022-08-23] MEDS: MIDODRINE 5 MG TAB PO SCH ×3 (06:32→18:52)
[2022-08-23 06:35] LABS: UREA NITROGEN, BLOOD 72 mg/dL (7-18)
--- NOTE | 2022-08-23 06:44 | NUR ---
CRITICAL LAB PHONE CALL FROM SILAS IN THE LAB, PATIENT WITH CRITICAL BUN LABS = 72. VALUE IS STILL ELEVATED, HOWEVER IT IS TRENDING DOWN. MESSAGE SENT TO DR. NOVOA
[2022-08-23 06:56] LABS: EOSINOPHILS % (AUTO) 7.1 % (0.0-4.0)
--- NOTE | 2022-08-23 07:15 | NUR ---
RECEIVED BEDSIDE REPORT FROM CHIEF WHEELAGE CLERK DENI RN AND VENKAT RN. PT LETHARGIC. TRACH TO VENT, ACVC FIO2 24%, VT 500, RATE 14, PEEP 5. NO S/S OF ACUTE RESP DISTRESS. SB ON MONITOR. G TUBE TO TUBE FEEDING, NEPRO @ 35ML/H, FWF [address] Q[address]H. [address] TO GRAVITY, CLEAR, YELLOW, WITH SEDIMENTS. TRIPLE LUMEN CATHETER TO LT FEMORAL, INFUSING DOPAMINE @2 MCG/KG/MIN, NS @ 70ML/H. SEE WOUND ASSESSMENT. SAFETY PRECAUTION IN PLACE, WILL CONTINUE TO MONITOR.
[2022-08-23] MEDS: IPRATROPIUM 0.02% 0.5 MG/2.5 ML NEBU INH PRN ×2 (07:16→14:45)
--- NOTE | 2022-08-23 07:17 | NUR ---
RECEIVED ON A [employer]rest[employer]ire[employer]APE R860 VENTILATOR PLUGGED INTO RED OUTLET TOLERATING WELL WITHOUT ADVERSE REACTIONS NOTED TO A PADMINILEY #8 AIRWAY SECURED WITH A SHEREEN TRACH TIE CUFF PRESSURE CHECKED NOTED AMBU BAG AT BEDSIDE STABLE EQUAL CHEST RISE DEEP TRACHEAL SUCTION FOR MODERATE SEMI THICK PALE YELLOW SECRETIONS AIRWAY PATENT
--- NOTE | 2022-08-23 07:21 | NUR ---
ENDORSED REPORT TO [facility] NURSE GREGORY REAL FOR CONTINUITY OF CARE. ALL QUESTIONS ANSWERED.
[2022-08-23] MEDS: PANTOPRAZOLE 40 MG INJ VIAL IVP SCH (09:09)
[2022-08-23] MEDS: DEXAMETHASONE 4 MG/ML VIAL IVP SCH (09:10)
[2022-08-23] MEDS: MEROPENEM 500 MG in NACL 0.9% 50 ML IV SCH ×2 (09:10→21:00)
[2022-08-23] MEDS: VIT-B COMP/VIT-C/FOLIC ACID 1 TAB PO SCH (09:10)
[2022-08-23] MEDS: LEVOTHYROXINE SODIUM 100 MCG VIAL IV SCH (09:11)
--- NOTE | 2022-08-23 11:00 | NUR ---
DR NOVOA ROUNDING AT BEDSIDE. UPDATED PT INFORMATION
--- NOTE | 2022-08-23 11:30 | NUR ---
STABLE RESTING WELL GOOD CHEST RISE AIRWAY PATENT
--- NOTE | 2022-08-23 13:03 | NUR ---
08/23/22 RD FOLLOW UP COMPLETED.PLEASE REFER TO NUTRITION ASSESSMENT UNDER CARE ACTIVITY FOR ESTIMATED NUTRITIONAL NEEDS. 1. CONTINUE NEPRO @ 35ML/HR WITH A FWF OF 200ML Q4H OR PER MD; THIS WILL PROVIDE 1512 CALORIES AND 68 GRAMS OF PROTEIN WHICH WILL MEET 85% OF PATIENTS ESTIMATED KCAL NEEDS AND 100% OF PTS PROTEIN NEEDS; ADEQUATE. 2. CONTINE WITH RADHA BID FOR WOUNDS WHICH WILL PROVIDE 160 CALORIES AND 5 GRAMS OF PROTEIN. 3. RD TO FOLLOW-UP IN 2-3 DAYS PATIENT IS HIGH RISK. RASHMI OCAMPO RD
[2022-08-23] MEDS: FOAM DRESSING TP SCH (13:07)
--- NOTE | 2022-08-23 14:00 | NUR ---
DR EDITH SHAIKH AT BEDSIDE. UPDATED PT INFORMATION.
--- NOTE | 2022-08-23 14:45 | NUR ---
EQUAL CHEST RISE DEEP TRACHEAL SUCTION FOR MODERATE SEMI THICK YELLOW WITH BLOOD TINGE SECRETIONS AIRWAY PATENT
--- NOTE | 2022-08-23 15:05 | NUR ---
DR NAI SHAIKH AT BEDSIDE. UPDATED PT INFORMATION.
--- NOTE | 2022-08-23 16:05 | NUR ---
STABLE NO APPARENT PULMONARY DISTRESS NOTED GOOD CHEST RISE AIRWAY PATENT
--- NOTE | 2022-08-23 17:48 | NUR ---
RESTING WELL NO DISTRESS NOTED GOOD CHEST RISE AIRWAY PATENT
--- NOTE | 2022-08-23 19:14 | NUR ---
ENDORSED TO LUG LOADER LILLIAM RN FOR CONTINUITY OF CARE. ALL QUESTIONS ANSWERED.
--- NOTE | 2022-08-23 19:50 | NUR ---
RECEIVED ON A CARESCAPE VENTILATOR PLUGGED INTO RED OUTLET. PT TOLERATING WELL WITHOUT ADVERSE REACTIONS OR DISTRESS NOTED. SHILEY #8 AIRWAY SECURED AND PATENT. CUFF PRESSURE CHECKED, AMBU BAG AT BEDSIDE SYMMETRICAL CHEST RISE. SUCTIONED PT. REMOVED SMALL AMT SEMI THICK YELLOW-BLOOD TINGED SECRETIONS. WILL CONTINUE TO MONITOR PATIENT.
--- NOTE | 2022-08-23 21:54 | NUR ---
2000-BEDSIDE [id number] GIVEN BY LYNETTE
--- NOTE | 2022-08-23 21:57 | NUR ---
[id number] Addendum: 08/23/22 at 2201 by Agency 04 RN RN 2100 - HOB UP. MORE THAN 30 D WITH GOKUL MCDONALD
--- NOTE | 2022-08-23 22:01 | NUR ---
ORAL CARE DONE
[2022-08-24] VITALS (36 sets, daily range): BP systolic 105–174; BP diastolic 6–89; PULSE 42–67; RESP 13–28; TEMP 95.8–99.3; O2SAT 97–100
[2022-08-24] MEDS: LEVOTHYROXINE SODIUM 100 MCG VIAL IV SCH (00:19)
[2022-08-24] MEDS: Z-GUARD PASTE TP SCH ×2 (00:22→13:00)
[2022-08-24] MEDS: GAUZE TP SCH ×2 (01:28→13:00)
--- NOTE | 2022-08-24 02:45 | NUR ---
REPLACED SUCTION PINTO DUE TO BLOOD FOUND IN THE OLD ONE. REPLACED GAUZE AND CLEANED AROUND STOMA. SKIN AROUND STOMA WAS SLIGHTLY RED. PT EXHIBITS GOD CHEST RISE AND NO DISTRESS NOTED. WILL CONTINUE TO MONITOR PT.
[2022-08-24] MEDS: NACL 0.9% 1,000 ML IV SCH ×2 (04:35→19:52)
[2022-08-24] MEDS: BLOOD GLUCOSE MONITORING 1 DEV DEV FS SCH ×3 (06:00→20:25)
[2022-08-24] MEDS: LANSOPRAZOLE 30 MG CAPDR GT SCH (06:30)
[2022-08-24] MEDS: MIDODRINE 5 MG TAB PO SCH ×2 (07:00→13:00)
[2022-08-24] MEDS: DEXAMETHASONE 4 MG/ML VIAL IVP SCH (08:40)
[2022-08-24] MEDS: MEROPENEM 500 MG in NACL 0.9% 50 ML IV SCH ×2 (08:40→20:22)
[2022-08-24] MEDS: VIT-B COMP/VIT-C/FOLIC ACID 1 TAB PO SCH (08:41)
[2022-08-24] MEDS: PANTOPRAZOLE 40 MG INJ VIAL IVP SCH (08:41)
--- NOTE | 2022-08-24 08:59 | NUR ---
UROLOGIST COLOR LABORATORY TECHNICIAN AT BEDSIDE
[2022-08-24 11:50] LABS: BASOPHILS % (AUTO) 0.5 % (0.0-2.0); EOSINOPHILS % (AUTO) 0.3 % (0.0-4.0); HEMATOCRIT 25.5 % (36-52); HEMOGLOBIN 8.7 g/dL (12.0-18.0); LYMPHOCYTES # (AUTO) 1.4 K/uL (2.0-11.5); LYMPHOCYTES % (AUTO) 20.1 % (20.5-51.1); MEAN CORPUSCULAR HEMOGLOBIN 29 pg (27-31); MEAN CORPUSCULAR HGB CONC 34 g/dL (33-37); MEAN CORPUSCULAR VOLUME 83.3 fL (80-94); MONOCYTES # (AUTO) 0.1 K/uL (0.8-1.0); MONOCYTES % (AUTO) 1.3 % (1.7-9.3); NEUTROPHILS # (AUTO) 5.2 K/uL (1.8-7.7); NEUTROPHILS % (AUTO) 77.8 % (42.2-75.2); PLATELET COUNT (AUTO) 73 K/uL (140-450); RED BLOOD CELL COUNT(AUTO) 3.06 MIL/uL (4.20-6.10); RED CELL DISTRIBUTION WIDTH 19.8 % (11.6-13.7); WHITE BLOOD COUNT (AUTO) 6.7 K/uL (4.8-10.8)
[2022-08-24 12:00] LABS: ANION GAP 16.4 (8-16); CARBON DIOXIDE 20.6 mmol/L (21-32); CHLORIDE 110 mmol/L (98-107); CREATININE 2.7 mg/dL (0.6-1.3); GLUCOSE 160 mg/dL (74-106); SODIUM SERUM 143 mmol/L (136-145)
--- NOTE | 2022-08-24 12:00 | NUR ---
WOUND CARE RE-EVAL NOTE: NO NEW WOUNDS. RIGHT HIP WOUND HEALED, OTHER WOUNDS STABLE AND IMPROVING. CONTINUE WITH ALL CURRENT WOUND CARE REGIMEN. -STABLE. ORAL MEMBRANE PINK INTACT, LIPS, CHEEKS SKIN DRY, NO OPEN WOUNDS -STABLE. TRACH SITE DAYNELL STOMA SKIN DRY AND CLEAN. SKIN INTACT. -STABLE. GT SITE DANYELL STOMA WITH SKIN INTACT. -IMPROVING. MOISTURE ASSOCIATED SKIN DAMAGE(MASD) TO: B/L GROINS, SCROTAL, SKIN MOIST AND RED. -HEALED. RIGHT HIP PRESSURE INJURY STAGE 1 FULLY HEALED. -IMPROVING. PRESSURE INJURY STAGE 2, COCCYX 1X1.5X0.1CM WOUND BED 100% RED TISSUE, MOIST, NO ODOR, DANYELL-WOUND SKIN EXTENDED TO SACRAL DTI. -STABLE, NO NEW WOUNDS. LEFT HEEL PRESSURE INJURY STAGE 1, 2X3CM NON-BLANCHABLE REDNESS, SKIN MUSHY INTACT -STABLE, NO NEW WOUNDS, NOT WORSENING. RIGHT HEEL PRESSURE INJURY UN-STAGEABLE 2X2CM DRY STABLE SCAB, DANYELL WOUND SKIN NON-BLANCHABLE SKIN INTACT
[2022-08-24 12:12] LABS: UREA NITROGEN, BLOOD 63 mg/dL (7-18)
--- NOTE | 2022-08-24 12:23 | NUR ---
andreiaar to dee(patrizia)
[2022-08-24] MEDS: FOAM DRESSING TP SCH (13:00)
--- NOTE | 2022-08-24 13:00 | NUR ---
RECEIVED PT FROM ERNESTINE RN PT IS NONVERBAL NO WITHDRAWAL OF EXTREMITY ON EXTERNAL STIMULI. PT IS TOTAL DEPENDENT. PT ON TRACHE TO VENT AC/VC FIO2 24% TV 500 RATE 14 PEEP 5 PT ISN ON LEFT GROIN CENTRAL LINE RUNING DOPAMINE DRIP AT 2 MCG, NS AT 70 ML WITH GT FEED IN ABDOMEN AND FEEDING OF NPHRO AT 35 ML AND FWF 200 Q4H. SOFT AND DISTENDED ABDOMEN PT ON MARTIN CATHETER DRAING YELLOW URINE 2L OUT INTACT PATENT, PT HAS RIGHT HEEL AND COCCYX WOUND CLEASSE AND DRESSING CHANGE. KET SAFE AND COMFORTABLE CLOSELY MONITOR
--- NOTE | 2022-08-24 13:23 | NUR ---
DR CASTAÑEDA CAME IN AND SEE PT AND GET UPDATE ON PT AWARE OF PT HR IN 40S-50S AND SBP IN 150S PT ON DOPAMINE DRIP. NEW ORDER GIVEN TO HOLD OFF DOPAMINE DRIP AND MONITOR HR IF HR IS BELOW 40 START DOPAMINE DRIP.
--- NOTE | 2022-08-24 15:50 | NUR ---
DR. BURT CAME IN AND SEE PT GET UPDATE MADE AWARE OF DR CASTAÑEDA ORDER TO HOLD OFF DOPAMINE AND IF HR BELOW 40 START DOPAMINE DRIP AT 2MCG AND PT BP IN IN 162/71 PT HAS MIDODRINE NEW ORDER GIVEN STOP MIDODRINE WILL PUT ORDER FOR. HYDRALAZINE. Addendum: 08/24/22 at 1555 by DENI CRAMER RN ERROR ENTRY NAME CORRECTION DR RODRIGUEZ PEREZ
[2022-08-24] MEDS ORDERED: DOPamine 400 MG/D5W PREMIX 250 ML IV PRN (18:15)
--- NOTE | 2022-08-24 19:30 | NUR ---
RECEIVED BEDSIDE REPORT FROM BOOK COVERER DENI ROMERO. PT TRACH TO VENT, AC-VC FIO2 24%, VT 500, RATE 14, PEEP 5.SINUS AHMET ON MONITOR, RESPIRATION EVEN AND UNLABORED, SKIN WARM AND DRY, PHOTO TAKEN BY DAY SHIFT NURSES. G-TUBE TO TUBE FEEDING, NEPRO @ 35ML/Hr, FLUSHES AT 200 ML Q4H. MARTIN CATHETER IN PLACE. OUTPUT CLEAR AND YELLOW IN COLOR. CENTRAL VENOUS CATHETER TO LEFT FEMORAL RUNNING NS @ 70ML/HR. SAFETY PRECAUTION IN PLACE, WILL CONTINUE TO MONITOR. Addendum: 08/24/22 at 2007 by Agency HEATHER ROMERO RECEIVED BEDSIDE REPORT FROM DAY SHIFT DENI ROMERO
--- NOTE | 2022-08-24 19:32 | NUR ---
REPORT GIVEN TO JONATHAN ROMEROSTARS SPECIALISTPREPRESS PROOFER [id number] ORDER FOR DR. YUSUF, AND DR FRIAS, ALSO ASSESS PT NEW WOUND ON PENILE SKIN ANTERIOR IS OPEN, PICTURES TAKEN AND ENDORSE TO PRINT. WILL PUT ORDER FOR WOUND CARE CONSULT.
[2022-08-24] MEDS: hydrALAZINE 25 MG TAB PO SCH ×2 (20:21→21:00)
[2022-08-25] VITALS (25 sets, daily range): BP systolic 117–170; BP diastolic 51–83; PULSE 40–76; RESP 14–36; TEMP 96.2–98.7; O2SAT 96–100
--- NOTE | 2022-08-25 | NUR ---
PT REPOSITIONED, ORAL CARE PROVIDED. NO DISTRESS NOTED.
[2022-08-25] MEDS: GAUZE TP SCH ×2 (01:00→12:08)
[2022-08-25] MEDS: Z-GUARD PASTE TP SCH ×2 (01:00→12:08)
[2022-08-25] MEDS: hydrALAZINE 25 MG TAB PO SCH ×3 (04:21→21:08)
[2022-08-25 05:13] LABS: BASOPHILS % (AUTO) 0.4 % (0.0-2.0); EOSINOPHILS % (AUTO) 0.4 % (0.0-4.0); HEMATOCRIT 22.1 % (36-52); HEMOGLOBIN 7.6 g/dL (12.0-18.0); LYMPHOCYTES # (AUTO) 2.2 K/uL (2.0-11.5); LYMPHOCYTES % (AUTO) 38.8 % (20.5-51.1); MEAN CORPUSCULAR HEMOGLOBIN 29 pg (27-31); MEAN CORPUSCULAR HGB CONC 35 g/dL (33-37); MEAN CORPUSCULAR VOLUME 83.3 fL (80-94); MONOCYTES # (AUTO) 0.3 K/uL (0.8-1.0); MONOCYTES % (AUTO) 5.9 % (1.7-9.3); NEUTROPHILS # (AUTO) 3.2 K/uL (1.8-7.7); NEUTROPHILS % (AUTO) 54.5 % (42.2-75.2); PLATELET COUNT (AUTO) 81 K/uL (140-450); RED BLOOD CELL COUNT(AUTO) 2.65 MIL/uL (4.20-6.10); RED CELL DISTRIBUTION WIDTH 19.6 % (11.6-13.7); WHITE BLOOD COUNT (AUTO) 5.8 K/uL (4.8-10.8)
[2022-08-25] MEDS: LANSOPRAZOLE 30 MG CAPDR GT SCH (05:30)
--- NOTE | 2022-08-25 05:30 | NUR ---
MORNING CARE ROUTINE PROVIDED. PT CLEANED AND LINEN CHANGED. MORNING MEDS GIVEN ORDERED.NO DISTRESS NOTED.
[2022-08-25 05:33] LABS: MAGNESIUM 2.8 mg/dL (1.8-2.4); PHOSPHORUS 3.8 mg/dL (2.5-4.9)
[2022-08-25] MEDS: BLOOD GLUCOSE MONITORING 1 DEV DEV FS SCH ×4 (05:35→18:49)
[2022-08-25 05:48] LABS: ANION GAP 15.4 (8-16); CARBON DIOXIDE 21.4 mmol/L (21-32); CHLORIDE 114 mmol/L (98-107); CREATININE 2.6 mg/dL (0.6-1.3); GLUCOSE 116 mg/dL (74-106); POTASSIUM 3.8 mmol/L (3.5-5.1); SODIUM SERUM 147 mmol/L (136-145)
[2022-08-25 05:52] LABS: UREA NITROGEN, BLOOD 64 mg/dL (7-18)
--- NOTE | 2022-08-25 07:40 | NUR ---
Received report from awake overnight monitor registry nurse EHATHER Peterson. Patient is AOx0 unable to follow commands and edematous from upper and lower extremities. PERRL noted. Currently on ETT to vent A/C VC FIO2 24%, VT 500, RR 14, Peep 5 with SpO2 saturation of 96%. Sinus iam on monitor. Abdomen is soft with abdominal quadrants active. Patient has g-tube currently infusing Nepro 35ml/hr with free water flush 200 ml every 4 hrs. Left femoral triple lumen central line with dressing dry and intact infusing normal saline at 70 ml/hr. Patient has swollen penis with penile opening at penis crease currently with ramirez catheter to gravity with no dependent loops with yellow urine. Standard precaution, HOB 30 degrees for aspiration precaution, bed wheels locked and in lowest position for patient safety.
[2022-08-25] MEDS: PANTOPRAZOLE 40 MG INJ VIAL IVP SCH (10:06)
[2022-08-25] MEDS: LEVOTHYROXINE SODIUM 100 MCG VIAL IV SCH (10:06)
[2022-08-25] MEDS: VIT-B COMP/VIT-C/FOLIC ACID 1 TAB PO SCH (10:07)
[2022-08-25] MEDS: DEXAMETHASONE 4 MG/ML VIAL IVP SCH (10:07)
[2022-08-25] MEDS: MEROPENEM 500 MG in NACL 0.9% 50 ML IV SCH ×2 (10:08→21:07)
[2022-08-25] MEDS: NACL 0.9% 1,000 ML IV SCH (10:09)
--- NOTE | 2022-08-25 10:45 | NUR ---
Dr. Bush rounded at patient bedside. Informed MD about patient having a wound consult regarding his penis crease opening per MD "put some Therahoney." Made MD aware that patients Sodium level was 147. MD stated she'll put in orders to stop the NS and start patient on another fluid. Will continue to follow plan of care.
--- NOTE | 2022-08-25 11:20 | NUR ---
Dr. Granado rounded at patient bedside. No new orders received. Will continue plan of care.
[2022-08-25] MEDS: NACL 0.45% 1,000 ML IV SCH (12:02)
[2022-08-25] MEDS: FOAM DRESSING TP SCH (12:13)
[2022-08-25] MEDS ORDERED: THERAHONEY GEL 42.5 GM TP PRN (14:50)
--- NOTE | 2022-08-25 15:50 | NUR ---
Transferred patient to room 121A with assistance of Adam Hutton and Thi Grijalva RN. Gave report to Telemetry nurse HEATHER Mcintosh. for continuity of care. Patients belongings and medications were transferred. No acute distress or SOB noted when transferring.
--- NOTE | 2022-08-25 15:51 | NUR ---
RECEIVED REPORT FROM ICU NURSE. PT ARRIVED IN [facility] IN A GURNEY. PT IS IN TRACH, NO SIGN OF DISTRESS. KEPT COMFORT AND SAFETY MEASURES. ORIENTED TO THE NEW ENVIRONMENT. CALL LIGHT WITHIN REACH.
--- NOTE | 2022-08-25 19:40 | NUR ---
ENDORSED PT TO BAGGER MEAT NURSE FOR CONTINUITY OF CARE,PT ON TRACH,STILL AHMET BUT NO SIGN OF DISTRESS. CALL LIGHT WITHIN REACH.
--- NOTE | 2022-08-25 19:41 | NUR ---
RECEIVED PT FROM MORNING SHIFT NURSE. PT IS APHASIC AND BEDBOUND. PT IS ON TRACH TO VENT WITH FI02-25%, VT-500ML, RATE OF 14, PMAX OF 40 AND PEEP OF 5. PT HAS PEG RUNNING WITH NEPRO 35ML/HR WITH WATER FLUSH OF 200ML EVERY 4 HRS. PT HAS LEFT FEMORAL CENTRAL LINE TRIPLE LUMEN RUNNING WITH 1/2 NS AT 60ML/HR. PT HAS EDEMA ON BILATERAL ARMS AND LEGS, PENILE WOUND, SACRAL WOUND AND RIGHT HEAL WOUND. PT HAS MARTIN CATHETER AND SB ON TELE MONITOR. ALL SAFETY MEASURES IMPLEMENTED. BED IN LOW POSITION, BED WHEELS ON LOCK AND CALL LIGHT WITHIN REACH.
--- NOTE | 2022-08-25 21:08 | NUR ---
SCHEDULED AND PRESCRIBED MEDICATION WAS GIVEN TO PT PER MD ORDER. ALL SAFETY MEASURES IMPLEMENTED. BED IN LOW POSITION, BED WHEELS ON LOCK AND CALL LIGHT WITHIN REACH.
[2022-08-26] VITALS (22 sets, daily range): BP systolic 154–201; BP diastolic 58–91; PULSE 32–44; RESP 14–20; TEMP 95–97.1; O2SAT 96–100
[2022-08-26] MEDS: BLOOD GLUCOSE MONITORING 1 DEV DEV FS SCH ×4 (00:16→18:39)
--- NOTE | 2022-08-26 00:16 | NUR ---
PT BLOOD GLUCOSE IS 117. NO INSULIN COVERAGE NEEDED.
[2022-08-26] MEDS: GAUZE TP SCH ×2 (01:06→12:41)
[2022-08-26] MEDS: Z-GUARD PASTE TP SCH ×2 (01:06→12:42)
--- NOTE | 2022-08-26 02:00 | NUR ---
CHECKED THE PT, STILL ON SLEEP. CHEST RISE AND FALL SYMMETRICALLY NOTED. RESPIRATION IS EVEN AND UNLABORED. ALL SAFETY MEASURES IMPLEMENTED. BED IN LOW POSITION, BED WHEELS ON LOCK AND CALL LIGHT WITHIN REACH.
--- NOTE | 2022-08-26 04:00 | NUR ---
MORNING CARE WAS GIVEN TO PT. SUCTION THE PT, CLEANED AND CHANGED GOWN, CHUCKS, LINENS AND BLANKET. EMPTIED MARTIN CATHETER WITH OUTPUT OF 1650ML. ALL SAFETY MEASURES IMPLEMENTED. BED IN LOW POSITION, BED WHEELS ON LOCK AND CALL LIGHT WITHIN REACH.
[2022-08-26] MEDS: NACL 0.45% 1,000 ML IV SCH (04:44)
[2022-08-26] MEDS: hydrALAZINE 25 MG TAB PO SCH ×3 (04:53→20:58)
[2022-08-26] MEDS: LANSOPRAZOLE 30 MG CAPDR GT SCH (05:36)
[2022-08-26 05:37] LABS: BASOPHILS % (AUTO) 0.4 % (0.0-2.0); EOSINOPHILS % (AUTO) 0.6 % (0.0-4.0); HEMATOCRIT 22.8 % (36-52); HEMOGLOBIN 7.6 g/dL (12.0-18.0); LYMPHOCYTES # (AUTO) 1.8 K/uL (2.0-11.5); LYMPHOCYTES % (AUTO) 38.1 % (20.5-51.1); MEAN CORPUSCULAR HEMOGLOBIN 29 pg (27-31); MEAN CORPUSCULAR HGB CONC 33 g/dL (33-37); MEAN CORPUSCULAR VOLUME 86.3 fL (80-94); MONOCYTES # (AUTO) 0.3 K/uL (0.8-1.0); MONOCYTES % (AUTO) 5.5 % (1.7-9.3); NEUTROPHILS # (AUTO) 2.6 K/uL (1.8-7.7); NEUTROPHILS % (AUTO) 55.4 % (42.2-75.2); PLATELET COUNT (AUTO) 76 K/uL (140-450); RED BLOOD CELL COUNT(AUTO) 2.64 MIL/uL (4.20-6.10); RED CELL DISTRIBUTION WIDTH 19.6 % (11.6-13.7); WHITE BLOOD COUNT (AUTO) 4.8 K/uL (4.8-10.8)
[2022-08-26 06:05] LABS: ANION GAP 12.7 (8-16); CARBON DIOXIDE 23.1 mmol/L (21-32); CHLORIDE 112 mmol/L (98-107); CREATININE 2.3 mg/dL (0.6-1.3); GLUCOSE 121 mg/dL (74-106); POTASSIUM 3.8 mmol/L (3.5-5.1); SODIUM SERUM 144 mmol/L (136-145)
[2022-08-26 06:13] LABS: MAGNESIUM 2.9 mg/dL (1.8-2.4); PHOSPHORUS 4.2 mg/dL (2.5-4.9)
[2022-08-26 06:15] LABS: UREA NITROGEN, BLOOD 61 mg/dL (7-18)
--- NOTE | 2022-08-26 07:29 | NUR ---
ENDORSED PT TO MORNING SHIFT NURSE FOR CONTINUITY OF CARE.
--- NOTE | 2022-08-26 07:30 | NUR ---
RECEIVED PT ON CARESCAPE VENT. CARLOS 8. ACVC 500, F14,+5,24%. VENT PLUGGED INTO RED OUTLET, WHEELS LOCKED, ALARMS ARE SET AND AUDIBLE TO THE NURSE STATION, AMBUBAG AT BEDSIDE. SATURATION 98%, CLEAR/ DIMINISHED BREATH SOUNDS HEARD ON AUSCULTATION. NO DISTRESS NOTED. WILL CONTINUE TO MONITOR.
--- NOTE | 2022-08-26 07:32 | NUR ---
RECEIVED PT FROM NIGHT RN, PT IS LYING ON THE BED WITH SIDE RAILS UP AND CALL LIGHT WITHIN REACH, PT IS ON A TRACH TO VENT WITH FIO2 AT 24%, VT IS 500, PEEP IS 5, SATURATING AT 100%, RATE IS 14, MARTIN CATHETER IN PLACE, HAS A LEFT FEMORAL CENTRAL VENOUS CATHETER WITH 1/2 NS INFUSING AT 60ML/HR, PEG TUBE INTACT AND ON CONTINUOUS FEEDING OF NEPHRO AT 35ML/HR, WITH WATER FLUSH OF 200 Q4H, NO SIGN OF DISTRESS NOTED AND WILL CONTINUE TO MONITOR PT.
[2022-08-26] MEDS: VIT-B COMP/VIT-C/FOLIC ACID 1 TAB PO SCH (08:48)
[2022-08-26] MEDS: DEXAMETHASONE 4 MG/ML VIAL IVP SCH (08:49)
[2022-08-26] MEDS: PANTOPRAZOLE 40 MG INJ VIAL IVP SCH (08:49)
[2022-08-26] MEDS: MEROPENEM 500 MG in NACL 0.9% 50 ML IV SCH ×2 (08:50→20:58)
--- NOTE | 2022-08-26 08:50 | NUR ---
PT WAS GIVEN THE SCHEDULED AM MEDICATIONS VIA IVP AND PEG TUBE.
[2022-08-26] MEDS: LEVOTHYROXINE SODIUM 100 MCG VIAL IV SCH (09:06)
--- NOTE | 2022-08-26 12:03 | NUR ---
PT' BP IS 166/72 PULSE IS 39, BP MEDICATION WAS GIVEN VIA PEG TUBE, RESIDUAL NOTED IS 2 ML
--- NOTE | 2022-08-26 12:14 | NUR ---
DR. BRANDT, STARCH AND PROSIZE MIXER, CAME BY T'S ROOM AND ASSESSED PT, MD GAVE A VERBAL ORDER TO DISCONTINUE THE PT'S IVF OF 1/2 NS.
--- NOTE | 2022-08-26 12:15 | NUR ---
INFORMED DR. AMRIBELL GONZALEZ OF THE PT'S STATUS OF HEART RATE OF BELOW 4O.
--- NOTE | 2022-08-26 12:31 | NUR ---
RECEIVED A TELEPHONE ORDER FROM DR. MARIBELL GONZALEZ TO TRANSFER PT TO ICU FOR THE LOW HEART RATE AND HIGH BP, GARY RICO INFORMED AND PLACED THE ICU TRANSFER ORDER.
[2022-08-26] MEDS: FOAM DRESSING TP SCH (12:41)
--- NOTE | 2022-08-26 13:02 | NUR ---
CALLED ICU AND GAVE REPORT TO HEATHER DIMAS REGARDING CARE MANAGEMENT FOR PT AND REASON FOR ICU TRANSFER.
--- NOTE | 2022-08-26 13:45 | NUR ---
Pt. arrived in ICU in hospital bed, on heart monitor. Transferred from Telemetry unit due to pt.'s persistent bradycardia in to 30's, with BP stable and hypertensive at times. Pt. with no acute distress. Pt. has been a pt. in ICU for over 1 week and is well known to staff and this law writer. Abril godoy draining to gravity. Pt. remain non-verbal and does not answer questions to orientation. Will cont. to monitor.
--- NOTE | 2022-08-26 13:53 | NUR ---
TRANSFERRED PT FROM 122 TO ICU BED 5. VIA VENT. NO ISSUES. VENT PLUGGED IN TO RED OUTLET, WHEELS LOCKED. ALARMS ARE SET AND AUDIBLE. AMBU BAD AT BEDSIDE. SUCTION SET UP. WILL CONTINUE TO MONITOR.
--- NOTE | 2022-08-26 13:56 | NUR ---
ENDORSED PT TO ASBESTOS ABATEMENT TECHNICIAN JUDIE, FOR CONTINUITY OF CARE
--- NOTE | 2022-08-26 15:16 | NUR ---
08/26/22 RD FOLLOW UP COMPLETED PLEASE REFER TO NUTRITION ASSESSMENT UNDER CARE ACTIVITY FOR ESTIMATED NUTRITIONAL NEEDS. 1. RD RECOMMENDS CONTINUE WITH NEPRO @ 35ML/HR WITH A FWF OF 200ML Q4H OR PER MD; THIS WILL PROVIDE 1512 CALORIES AND 68 GRAMS OF PROTEIN 2. RD RECOMMENDS CONTINUING WITH RADHA BID FOR WOUNDS WHICH WILL PROVIDE 160 CALORIES AND 5 GRAMS OF PROTEIN. 3. RD TO FOLLOW-UP 2-3 DAYS, HIGH RISK RADHA FRANK RD
[2022-08-26] MEDS ORDERED: hydrALAZINE 20 MG/ML VIAL IVP PRN (20:25)
[2022-08-26] MEDS ORDERED: BUMETANIDE 1 MG/4 ML VIAL IV SCH (20:30)
[2022-08-27] VITALS (29 sets, daily range): BP systolic 123–169; BP diastolic 57–89; PULSE 34–71; RESP 14–24; TEMP 95.8–98.5; O2SAT 97–100
[2022-08-27] MEDS: Z-GUARD PASTE TP SCH ×2 (01:00→13:39)
[2022-08-27] MEDS: GAUZE TP SCH ×2 (01:00→13:39)
[2022-08-27] MEDS: BLOOD GLUCOSE MONITORING 1 DEV DEV FS SCH ×4 (02:00→19:43)
[2022-08-27] MEDS: hydrALAZINE 25 MG TAB PO SCH ×3 (04:39→21:33)
[2022-08-27 05:28] LABS: BASOPHILS % (AUTO) 0.3 % (0.0-2.0); EOSINOPHILS % (AUTO) 0.4 % (0.0-4.0); HEMATOCRIT 25.2 % (36-52); HEMOGLOBIN 8.5 g/dL (12.0-18.0); LYMPHOCYTES # (AUTO) 1.4 K/uL (2.0-11.5); LYMPHOCYTES % (AUTO) 37.6 % (20.5-51.1); MEAN CORPUSCULAR HEMOGLOBIN 29 pg (27-31); MEAN CORPUSCULAR HGB CONC 34 g/dL (33-37); MEAN CORPUSCULAR VOLUME 85.5 fL (80-94); MONOCYTES # (AUTO) 0.2 K/uL (0.8-1.0); MONOCYTES % (AUTO) 6.9 % (1.7-9.3); NEUTROPHILS % (AUTO) 54.8 % (42.2-75.2); PLATELET COUNT (AUTO) 92 K/uL (140-450); RED BLOOD CELL COUNT(AUTO) 2.94 MIL/uL (4.20-6.10); RED CELL DISTRIBUTION WIDTH 19.9 % (11.6-13.7); WHITE BLOOD COUNT (AUTO) 3.6 K/uL (4.8-10.8)
--- NOTE | 2022-08-27 06:00 | NUR ---
PRBC # 3 transfusing for Hgb=5.8. Argatroban Drsandeep DC @ 0045 for bleeding and PTT > [address] Alvaro Aggarwal. pt[address] ST on the scope. Levophed, Neosynephrine & Vasopressin, Sandostatin & Protonix, Bicarb Octavia infattila. pt. Rt. Femoral TLC central Line dressing changed and pressure dressing applied for slight bleeding @ site. kept clean and dry. Repositioned. Family updated on pt. status. Will cont. to monitor. Addendum: 08/27/22 at 0846 by Agency 03 HEATHER RN Mistaken Entry; chated on wrong patient
[2022-08-27 06:08] LABS: ANION GAP 14.3 (8-16); CARBON DIOXIDE 22.2 mmol/L (21-32); CHLORIDE 110 mmol/L (98-107); GLUCOSE 115 mg/dL (74-106); POTASSIUM 3.5 mmol/L (3.5-5.1); SODIUM SERUM 143 mmol/L (136-145); UREA NITROGEN, BLOOD 60 mg/dL (7-18)
[2022-08-27 06:19] LABS: MAGNESIUM 2.8 mg/dL (1.8-2.4); PHOSPHORUS 4.2 mg/dL (2.5-4.9)
--- NOTE | 2022-08-27 07:30 | NUR ---
ASSUMED CARE OF PT AT THIS TIME,PT OBTUNDED, VSS, RESPIRATIONS EVEN NON LABORED ,HAS ON A BLANKET WARMER, MOVES LOWER EXTREMITIES.
[2022-08-27] MEDS: LANSOPRAZOLE 30 MG CAPDR GT SCH (08:08)
[2022-08-27] MEDS: LEVOTHYROXINE 0.075 MG TAB PEG SCH (08:08)
[2022-08-27] MEDS: DEXAMETHASONE 4 MG/ML VIAL IVP SCH (09:49)
[2022-08-27] MEDS: PANTOPRAZOLE 40 MG INJ VIAL IVP SCH (09:50)
[2022-08-27] MEDS: VIT-B COMP/VIT-C/FOLIC ACID 1 TAB PO SCH (09:50)
[2022-08-27] MEDS: MEROPENEM 500 MG in NACL 0.9% 50 ML IV SCH ×2 (10:28→21:34)
[2022-08-27] MEDS: FOAM DRESSING TP SCH (13:40)
--- NOTE | 2022-08-27 17:05 | NUR ---
pt repositioned, pericare provided, vss
--- NOTE | 2022-08-27 17:32 | NUR ---
JOLANTA TO KERRY(HEATHER)
--- NOTE | 2022-08-27 18:00 | NUR ---
PT ARRIVED IN THE UNIT. GOT REPORT FROM THE ICU NURSE, PT NOT VERBAL , G.TUBE IN PLACE FEDERAL TRIPLE LUMEN ON THE LEFT SIDE, SACRAL ULCER, PT EDEMATOUS IN THE FOUR EXTREMITIES, TRACK TO THE VENT ORDERED MAINTAINED V.S OBTAINED . TEMP 99.3 , BP 133/73 H 68 O2 SATURATION IS 98%. BS CHECKED AND IT IS 104 NO COVERAGE EKG THE ADMITTING STRIP SR [id number]
--- NOTE | 2022-08-27 18:00 | NUR ---
Transferred patient to telemetry unit 107A to nurse Johan ROMERO. Transferred patient will all belongings. No acute distress or SOB noted.
--- NOTE | 2022-08-27 19:25 | NUR ---
gave report from the night [email or web address]
--- NOTE | 2022-08-27 19:30 | NUR ---
RECEIVED REPORT FROM DAY SHIFT RN FOR CONTINUITY OF CARE. PT IS RESTING IN BED. TRACH TO VENT. SETTINGS: 500,24%,14 ,5. SATING 100%. PT HAS FC DRAINING TO GRAVITY. CLEAR YELLOW URINE. PT HAS LEFT FEMORAL CENTRAL LINE TRIPLE LUMEN. SL. SAFETY MEASURES TAKEN. WILL CONTINUE TO MONITOR THE PT.
--- NOTE | 2022-08-27 20:00 | NUR ---
RECEIVED PT FROM ER. REPORT RECEIVED FROM ER NURSE JANIE. PT IS AAOX4. PT CAME IN WITH COMPLAINS OF ABD PAIN. PT UNABLE TO DESCRIBE THE PAIN. FEELS WORSE WHEN MOVING AND BETTER WHEN NOT MOVING. PAIN IS RLQ. PT HAS IV ON LEFT AC 2O GAUGE WITH NS 125 CC/HR. EDUCATED PT WOOD CREW SUPERVISOR LIGHT SYSTEM AND ROOM ENVIRONMENT. POC DISCUSSED. WILL CONTINUE TO MONITOR THE PT. Addendum: 08/27/22 at 2312 by Randal Medina RN WRONG PT
[2022-08-28] VITALS (8 sets, daily range): BP systolic 122–132; BP diastolic 60–65; PULSE 42–59; RESP 14–18; TEMP 97–98.2; O2SAT 99–100
[2022-08-28] MEDS: BLOOD GLUCOSE MONITORING 1 DEV DEV FS SCH ×3 (00:31→12:00)
[2022-08-28] MEDS: GAUZE TP SCH ×2 (01:06→13:00)
[2022-08-28] MEDS: Z-GUARD PASTE TP SCH ×2 (01:08→14:03)
--- NOTE | 2022-08-28 02:15 | NUR ---
OBSERVED PT. PT IS RESTING IN BED. NOT IN ANY DISTRESS. PT SATING 96%. BREATHING EVEN AND UNLABORED. BED AT THE LOWEST POSITION. HEAD OF THE BED RAISED. WILL CONTINUE TO MONITOR THE PT.
--- NOTE | 2022-08-28 04:10 | NUR ---
PT WAS CLEANED AND CHANGED. TOLERATED IT WELL. PT SATING 99% ON VENT. NOT IN ANY DISTRESS. SAFETY MEASURES TAKEN. WILL CONTINUE TO MONITOR THE PT.
[2022-08-28] MEDS: hydrALAZINE 25 MG TAB PO SCH ×2 (05:45→14:01)
[2022-08-28] MEDS: LANSOPRAZOLE 30 MG CAPDR GT SCH (05:46)
[2022-08-28] MEDS: LEVOTHYROXINE 0.075 MG TAB PEG SCH (05:47)
[2022-08-28 07:00] LABS: ANION GAP 12.5 (8-16); CARBON DIOXIDE 23.8 mmol/L (21-32); CHLORIDE 109 mmol/L (98-107); CREATININE 2.1 mg/dL (0.6-1.3); GLUCOSE 94 mg/dL (74-106); POTASSIUM 3.3 mmol/L (3.5-5.1); SODIUM SERUM 142 mmol/L (136-145)
[2022-08-28 07:13] LABS: UREA NITROGEN, BLOOD 61 mg/dL (7-18)
[2022-08-28 07:20] LABS: MAGNESIUM 2.6 mg/dL (1.8-2.4); PHOSPHORUS 3.5 mg/dL (2.5-4.9)
--- NOTE | 2022-08-28 07:31 | NUR ---
ENDORSED PT TO DAY SHIFT RN FOR CONTINUITY OF CARE. PT IS STABLE.
--- NOTE | 2022-08-28 07:31 | NUR ---
RECEIVED PATIENT FROM PM NURSE. PATIENT SEEN. PATIENT BASELINE HEART RATE 35-50 DURING LENGTH OF HOSPITAL STAY. PATIENT IS VITALS STABLE WIHTIN THE BASELINE
[2022-08-28 07:44] LABS: HEMATOCRIT 23.7 % (36-52); HEMOGLOBIN 7.8 g/dL (12.0-18.0); MEAN CORPUSCULAR HEMOGLOBIN 29 pg (27-31); MEAN CORPUSCULAR HGB CONC 33 g/dL (33-37); MEAN CORPUSCULAR VOLUME 86.6 fL (80-94); PLATELET COUNT (AUTO) 114 K/uL (140-450); RED BLOOD CELL COUNT(AUTO) 2.74 MIL/uL (4.20-6.10); RED CELL DISTRIBUTION WIDTH 20.5 % (11.6-13.7)
[2022-08-28 08:25] LABS: BASOPHILS % (MANUAL) 0 % (0-2); BLASTS, MANUAL % 0 % (0-0); EOSINOPHILS % (MANUAL) 0 % (0-4); LYMPHOCYTES % (MANUAL) 50 % (20-46); METAMYELOCYTES % 0 % (0-0); MONOCYTES % (MANUAL) 7 % (5-12); MYELOCYTES % 0 % (0-0); OTHER CELLS,MANUAL % 0 (0-0); PROMYELOCYTES % 0 % (0-0)
--- NOTE | 2022-08-28 09:00 | NUR ---
PATIENT SEEN. PATIENT REPOSITIPONED, HEART RATE INCREASED FROM 38 TO 48. WHICH IS WITHIN BASELINE HEART RATE LEVEL.
[2022-08-28] MEDS ORDERED: HYDR-1102 PO (10:42)
[2022-08-28] MEDS ORDERED: DOCU50LI8 PO (10:42)
[2022-08-28] MEDS ORDERED: METH4TAB1 PO (10:42)
[2022-08-28] MEDS ORDERED: PIPE50SO5 IV (10:42)
[2022-08-28] MEDS ORDERED: SYN.075 PEG (10:42)
[2022-08-28] MEDS: DEXAMETHASONE 4 MG/ML VIAL IVP SCH (10:43)
[2022-08-28] MEDS: VIT-B COMP/VIT-C/FOLIC ACID 1 TAB PO SCH (10:44)
[2022-08-28] MEDS: PANTOPRAZOLE 40 MG INJ VIAL IVP SCH (10:49)
[2022-08-28] MEDS: FOAM DRESSING TP SCH (13:00)
--- NOTE | 2022-08-28 14:46 | NUR ---
08/28/22 RD FOLLOW UP COMPLETED PLEASE REFER TO NUTRITION ASSESSMENT UNDER CARE ACTIVITY FOR ESTIMATED NUTRITIONAL NEEDS. 1. RD RECOMMENDS CONTINUE WITH NEPRO @ 35ML/HR WITH A FWF OF 200ML Q4H OR PER MD, THIS WILL PROVIDE 1512 CALORIES AND 68 GRAMS OF PROTEIN 2. RD RECOMMENDS CONTINUING WITH RADHA BID FOR WOUNDS WHICH WILL PROVIDE 160 CALORIES AND 5 GRAMS OF PROTEIN. 3. RD TO FOLLOW-UP 2-3 DAYS, HIGH RISK RADHA FRANK RD
--- NOTE | 2022-08-28 15:34 | NUR ---
PATIENT DISCHARGED TO [facility]. PICKED UP BY EMR. ET TUBE, INGUINAL PICC LINE, G TUBE ALL PRESENT AND PATENT. ENDORSED PATIENT TO [facility] NURSE FOR CONTINUATION OF CARE AND RECOVERY OF PATIENT.
== END 2022-08-28 15:45 | DRG 720 ==
LOC: MED 21:08 → MTU 08-16 00:25 → MIC 08-16 04:48 → MTU 08-25 18:43 → MIC 08-26 13:44 → MTU 08-27 17:45
PROVIDERS: ADMIT Family Medicine; ATTEND Family Medicine
PROC: 5A1955Z Respiratory Ventilation, Greater than 96 Consecutive Hours (ICD-10-PCS; principal; 2022-08-15)
PROC: 30233N1 Transfusion of Nonautologous Red Blood Cells into Peripheral Vein, Percutaneous Approach (ICD-10-PCS; 2022-08-18)
DX: A41.9 Sepsis, unspecified organism (principal); J96.21 Acute and chronic respiratory failure with hypoxia; N17.0 Acute kidney failure with tubular necrosis; R65.21 Severe sepsis with septic shock; G93.41 Metabolic encephalopathy; D69.6 Thrombocytopenia, unspecified; D62 Acute posthemorrhagic anemia; E83.41 Hypermagnesemia; J18.9 Pneumonia, unspecified organism; G93.1 Anoxic brain damage, not elsewhere classified; L89.152 Pressure ulcer of sacral region, stage 2; E87.0 Hyperosmolality and hypernatremia; N18.9 Chronic kidney disease, unspecified; Z16.12 Extended spectrum beta lactamase (ESBL) resistance; E87.6 Hypokalemia; N30.80 Other cystitis without hematuria; J44.0 Chronic obstructive pulmonary disease with (acute) lower respiratory infection; R00.1 Bradycardia, unspecified; E03.9 Hypothyroidism, unspecified; Z20.822 Contact with and (suspected) exposure to COVID-19; I12.9 Hypertensive chronic kidney disease with stage 1 through stage 4 chronic kidney disease, or unspecified chronic kidney disease; Z99.11 Dependence on respirator [ventilator] status; Z79.1 Long term (current) use of non-steroidal anti-inflammatories (NSAID); Z79.899 Other long term (current) drug therapy; Z93.1 Gastrostomy status; Z93.0 Tracheostomy status
CPT/HCPCS: 36415; 36600; 71045; 80048; 80053; 80202; 81001; 82550; 82803; 82948; 83036; 83605; 83735; 83880; 84100; 84439; 84443; 84484; 85025; 85610; 85730; 86022; 86886; 86900; 86901; 86920; 87040; 87070; 87081; 87086; 87205; 93005; 94002; 94003; 94640; 96361; 96374; 99291; C9113; J0360; J0461; J1100; J1265; J1815; J2185; J2543; J3370; J3490; J7030; J7060; J7644; P9016; P9035; P9046; Q0092

== ENCOUNTER 2022-09-27 23:55 | Inpatient (IN) | payer MEDICAID, OTHER ==
[~2022-09-27] VITALS: Ht 167.6 cm; Wt 88.0 kg
[~2022-09-27 23:55] MED LIST: ACET-2619 GT; ATRMDI INH; CHLO473L1 PO; DOCU50LI8 PO; HYDR-1102 PO; INSU100S5; METH4TAB1 PO; METO5SOL19 GT; PANT40GR GT; PIPE50SO5 IV; SYN.075 PEG; VITA1TAB44 PO; [UNRECOGNIZED DRUG - CODE] GT
[2022-09-28] VITALS (13 sets, daily range): BP systolic 77–139; BP diastolic 38–66; PULSE 72–91; RESP 18; TEMP 97.5; O2SAT 95–100
[2022-09-28] MEDS ORDERED: NACL 0.9% 1,000 ML IV ONE (00:05)
[2022-09-28 00:31] LABS: BASOPHILS % (AUTO) 0.1 % (0.0-2.0); EOSINOPHILS # (AUTO) 0.1 K/uL (0-0.4); EOSINOPHILS % (AUTO) 1.1 % (0.0-4.0); HEMATOCRIT 20.7 % (36-52); MEAN CORPUSCULAR HEMOGLOBIN 30 pg (27-31); MEAN CORPUSCULAR HGB CONC 34 g/dL (33-37); MEAN CORPUSCULAR VOLUME 87.3 fL (80-94); MONOCYTES # (AUTO) 0.1 K/uL (0.8-1.0); MONOCYTES % (AUTO) 1.4 % (1.7-9.3); NEUTROPHILS # (AUTO) 6.8 K/uL (1.8-7.7); NEUTROPHILS % (AUTO) 85.4 % (42.2-75.2); PLATELET COUNT (AUTO) 50 K/uL (140-450); RED BLOOD CELL COUNT(AUTO) 2.37 MIL/uL (4.20-6.10); RED CELL DISTRIBUTION WIDTH 23.5 % (11.6-13.7)
[2022-09-28 00:40] LABS: TOTAL BILIRUBIN 0.6 mg/dL (0.0-1.0); TOTAL PROTEIN, SERUM 6.6 g/dL (6.4-8.2)
[2022-09-28 00:41] LABS: ALANINE AMINOTRANSFERASE 42 U/L (12-78); ALBUMIN 2.1 g/dL (3.4-5.0); ALKALINE PHOSPHATASE 460 U/L (50-136); ANION GAP 18.8 (8-16); ASPARTATE AMINOTRANSFERASE 39 U/L (15-37); CALCIUM 9.6 mg/dL (8.5-10.1); CARBON DIOXIDE 19.8 mmol/L (21-32); CHLORIDE 94 mmol/L (98-107); CREATININE 3.7 mg/dL (0.6-1.3); GLUCOSE 95 mg/dL (74-106); LIPASE 37 U/L (73-393); POTASSIUM 4.6 mmol/L (3.5-5.1); SODIUM SERUM 128 mmol/L (136-145)
[2022-09-28 00:45] LABS: UREA NITROGEN, BLOOD 82 mg/dL (7-18)
[2022-09-28] MEDS ORDERED: CEFEPIME 1,000 MG in DEXTROSE 5% 50 ML IV ONE (00:50)
[2022-09-28] MEDS ORDERED: CEFEPIME 1,000 MG VIAL ONE (00:52)
[2022-09-28] MEDS ORDERED: NOREPINEPHRINE 4 MG/4 ML VIAL IV ONE (00:52)
[2022-09-28] MEDS: NOREPINEPHRINE 8 MG in DEXTROSE 5% 250 ML IV PRN ×2 (01:08→15:00)
[2022-09-28 01:09] LABS: INR 1.01 (0.8-1.2); PROTHROMBIN TIME 10.6 secs (10.8-13.4)
[2022-09-28 01:23] LABS: LACTIC ACID 4.4 mmol/L (0.4-2.0)
[2022-09-28] MEDS ORDERED: BISA-218 RC (02:25)
[2022-09-28] MEDS ORDERED: MAGN400S60 PO (02:28)
[2022-09-28] MEDS ORDERED: MORPHINE SULFATE 2 MG/ML SYR IVP PRN (02:30)
[2022-09-28] MEDS ORDERED: LORazepam 2 MG/ML VIAL IVP PRN (02:30)
[2022-09-28] MEDS ORDERED: ACETAMINOPHEN 325 MG TAB PO PRN (02:30)
[2022-09-28] MEDS ORDERED: ONDANSETRON 4 MG/2 ML VIAL IVP PRN (02:30)
[2022-09-28 03:26] LABS: APPEARANCE,URINE CLOUDY (CLEAR); BILIRUBIN,URINE NEGATIVE (NEGATIVE); BLOOD, URINE 3+ (NEGATIVE); COLOR,URINE YELLOW (YELLOW); LEUKOCYTE ESTERASE ,URINE 3+ (NEGATIVE); NITRITE, URINE NEGATIVE (NEGATIVE); PROTEIN,URINE 3+ (NEGATIVE); UGLUCOSE NEGATIVE (NEGATIVE); UROBILINOGEN,URINE 0.2 EU/dL (0.2 - 1)
[2022-09-28 03:32] LABS: BACTERIA,URINE >30 (MANY) /HPF (None Seen); SQUAMOUS EPITHELIAL CELL,UR >10 (MANY) /LPF (0-3 (FEW))
[2022-09-28 03:33] LABS: MUCUS,URINE 2+ /LPF (None Seen)
[2022-09-28] MEDS: NACL 0.9% 1,000 ML IV SCH ×3 (04:20→22:53)
[2022-09-28] MEDS ORDERED: PIPERACILLIN/TAZOBACTAM 3.375 GM in DEXTROSE 5% 50 ML IV SCH (05:00)
[2022-09-28] MEDS ORDERED: PIPERACILLIN/TAZOBACTAM 3.375 GM VIAL IV ONE ×2 (05:25→14:39)
[2022-09-28] MEDS ORDERED: PIPERACILLIN/TAZOBACTAM 2.25 GM VIAL IV ONE ×2 (14:43→20:42)
[2022-09-28] MEDS: PIPERACILLIN/TAZOBACTAM 2.25 GM in DEXTROSE 5% 50 ML IV SCH ×2 (14:45→21:06)
[2022-09-28] MEDS ORDERED: ALBUMIN HUMAN 25% 0 ML IV ONE (18:45)
[2022-09-28] MEDS: ALBUMIN HUMAN 25% 50 ML IV SCH (21:47)
[2022-09-29] VITALS (26 sets, daily range): BP systolic 94–154; BP diastolic 47–92; PULSE 58–88; RESP 13–22; TEMP 96–98.6; O2SAT 95–100
[2022-09-29 04:56] LABS: BASOPHILS % (AUTO) 0.2 % (0.0-2.0); EOSINOPHILS # (AUTO) 0.2 K/uL (0-0.4); EOSINOPHILS % (AUTO) 1.7 % (0.0-4.0); HEMATOCRIT 22.8 % (36-52); HEMOGLOBIN 7.8 g/dL (12.0-18.0); LYMPHOCYTES # (AUTO) 0.8 K/uL (2.0-11.5); LYMPHOCYTES % (AUTO) 8.6 % (20.5-51.1); MEAN CORPUSCULAR HEMOGLOBIN 29 pg (27-31); MEAN CORPUSCULAR HGB CONC 34 g/dL (33-37); MONOCYTES # (AUTO) 0.2 K/uL (0.8-1.0); MONOCYTES % (AUTO) 1.7 % (1.7-9.3); NEUTROPHILS # (AUTO) 8.1 K/uL (1.8-7.7); NEUTROPHILS % (AUTO) 87.8 % (42.2-75.2); PLATELET COUNT (AUTO) 45 K/uL (140-450); RED BLOOD CELL COUNT(AUTO) 2.65 MIL/uL (4.20-6.10); RED CELL DISTRIBUTION WIDTH 23.6 % (11.6-13.7); WHITE BLOOD COUNT (AUTO) 9.2 K/uL (4.8-10.8)
[2022-09-29 05:17] LABS: ALANINE AMINOTRANSFERASE 28 U/L (12-78); ALKALINE PHOSPHATASE 483 U/L (50-136); ANION GAP 17.8 (8-16); ASPARTATE AMINOTRANSFERASE 26 U/L (15-37); CALCIUM 9.1 mg/dL (8.5-10.1); CARBON DIOXIDE 20.5 mmol/L (21-32); CHLORIDE 98 mmol/L (98-107); CREATININE 3.1 mg/dL (0.6-1.3); GLUCOSE 98 mg/dL (74-106); MAGNESIUM 2.3 mg/dL (1.8-2.4); POTASSIUM 4.3 mmol/L (3.5-5.1); SODIUM SERUM 132 mmol/L (136-145); TOTAL BILIRUBIN 0.9 mg/dL (0.0-1.0); TOTAL PROTEIN, SERUM 6.4 g/dL (6.4-8.2)
[2022-09-29 05:24] LABS: UREA NITROGEN, BLOOD 74 mg/dL (7-18)
[2022-09-29] MEDS: NACL 0.9% 1,000 ML IV SCH (05:30)
[2022-09-29] MEDS: ALBUMIN HUMAN 25% 50 ML IV SCH ×3 (06:05→21:29)
[2022-09-29] MEDS ORDERED: PIPERACILLIN/TAZOBACTAM 2.25 GM VIAL IV ONE (06:11)
[2022-09-29] MEDS: PIPERACILLIN/TAZOBACTAM 2.25 GM in DEXTROSE 5% 50 ML IV SCH ×3 (06:13→21:32)
[2022-09-29] MEDS: FUROSEMIDE 40 MG/4 ML VIAL IVP SCH (09:47)
[2022-09-29 10:07] LABS: LACTIC ACID 1.4 mmol/L (0.4-2.0)
[2022-09-29] MEDS: NOREPINEPHRINE 8 MG in DEXTROSE 5% 250 ML IV PRN ×2 (11:06→17:25)
[2022-09-29] MEDS ORDERED: VANCOMYCIN PER PHARMACY MC PRN (17:00)
[2022-09-29] MEDS ORDERED: VANCOMYCIN 1,000 MG in DEXTROSE 5% 250 ML IV SCH (18:00)
[2022-09-30] VITALS (30 sets, daily range): BP systolic 91–128; BP diastolic 37–57; PULSE 56–90; RESP 14–19; TEMP 96.1–98.9; O2SAT 97–100
[2022-09-30] MEDS: PIPERACILLIN/TAZOBACTAM 2.25 GM in DEXTROSE 5% 50 ML IV SCH ×3 (05:03→20:55)
[2022-09-30 05:10] LABS: BASOPHILS % (AUTO) 0.4 % (0.0-2.0); EOSINOPHILS # (AUTO) 0.1 K/uL (0-0.4); EOSINOPHILS % (AUTO) 1.5 % (0.0-4.0); HEMATOCRIT 20.3 % (36-52); LYMPHOCYTES # (AUTO) 0.6 K/uL (2.0-11.5); LYMPHOCYTES % (AUTO) 7.5 % (20.5-51.1); MEAN CORPUSCULAR HEMOGLOBIN 29 pg (27-31); MEAN CORPUSCULAR HGB CONC 34 g/dL (33-37); MEAN CORPUSCULAR VOLUME 84.8 fL (80-94); MONOCYTES # (AUTO) 0.1 K/uL (0.8-1.0); MONOCYTES % (AUTO) 1.3 % (1.7-9.3); NEUTROPHILS # (AUTO) 6.7 K/uL (1.8-7.7); NEUTROPHILS % (AUTO) 89.3 % (42.2-75.2); PLATELET COUNT (AUTO) 29 K/uL (140-450); RED BLOOD CELL COUNT(AUTO) 2.39 MIL/uL (4.20-6.10); RED CELL DISTRIBUTION WIDTH 23.4 % (11.6-13.7); WHITE BLOOD COUNT (AUTO) 7.5 K/uL (4.8-10.8)
[2022-09-30 05:38] LABS: ANION GAP 16.8 (8-16); CALCIUM 9.2 mg/dL (8.5-10.1); CARBON DIOXIDE 20.8 mmol/L (21-32); CHLORIDE 101 mmol/L (98-107); CREATININE 3.1 mg/dL (0.6-1.3); GLUCOSE 114 mg/dL (74-106); POTASSIUM 3.6 mmol/L (3.5-5.1); SODIUM SERUM 135 mmol/L (136-145)
[2022-09-30 05:45] LABS: UREA NITROGEN, BLOOD 74 mg/dL (7-18)
[2022-09-30] MEDS: FUROSEMIDE 40 MG/4 ML VIAL IVP SCH (09:07)
[2022-09-30] MEDS ORDERED: VANCOMYCIN 1,000 MG in DEXTROSE 5% 250 ML IV SCH (12:00)
[2022-09-30] MEDS ORDERED: FOAM DRESSING TP PRN (12:00)
[2022-09-30] MEDS: THERAHONEY GEL 42.5 GM TP SCH (13:14)
[2022-09-30] MEDS: NYSTATIN CRE 100 MU/GM 15 GM TUBE TP SCH ×2 (13:15→20:56)
[2022-09-30] MEDS: FOAM DRESSING TP SCH (13:15)
[2022-09-30] MEDS: Z-GUARD PASTE TP SCH (13:16)
[2022-10-01] VITALS (31 sets, daily range): BP systolic 88–125; BP diastolic 44–68; PULSE 69–171; RESP 14–24; TEMP 94.8–99; O2SAT 98–100
[2022-10-01] MEDS: Z-GUARD PASTE TP SCH ×2 (01:44→13:00)
[2022-10-01 04:43] LABS: BASOPHILS % (AUTO) 0.2 % (0.0-2.0); EOSINOPHILS # (AUTO) 0.1 K/uL (0-0.4); EOSINOPHILS % (AUTO) 0.7 % (0.0-4.0); HEMATOCRIT 21.2 % (36-52); HEMOGLOBIN 7.3 g/dL (12.0-18.0); LYMPHOCYTES # (AUTO) 1.5 K/uL (2.0-11.5); LYMPHOCYTES % (AUTO) 15.8 % (20.5-51.1); MEAN CORPUSCULAR HEMOGLOBIN 29 pg (27-31); MEAN CORPUSCULAR HGB CONC 35 g/dL (33-37); MEAN CORPUSCULAR VOLUME 84.6 fL (80-94); MONOCYTES # (AUTO) 0.4 K/uL (0.8-1.0); MONOCYTES % (AUTO) 3.9 % (1.7-9.3); NEUTROPHILS # (AUTO) 7.3 K/uL (1.8-7.7); NEUTROPHILS % (AUTO) 79.4 % (42.2-75.2); PLATELET COUNT (AUTO) 43 K/uL (140-450); RED CELL DISTRIBUTION WIDTH 23.9 % (11.6-13.7); WHITE BLOOD COUNT (AUTO) 9.2 K/uL (4.8-10.8)
[2022-10-01 05:13] LABS: ANION GAP 17.8 (8-16); CALCIUM 9.6 mg/dL (8.5-10.1); CARBON DIOXIDE 21.9 mmol/L (21-32); CHLORIDE 99 mmol/L (98-107); CREATININE 3.2 mg/dL (0.6-1.3); GLUCOSE 120 mg/dL (74-106); POTASSIUM 3.7 mmol/L (3.5-5.1); SODIUM SERUM 135 mmol/L (136-145)
[2022-10-01 05:17] LABS: UREA NITROGEN, BLOOD 75 mg/dL (7-18)
[2022-10-01] MEDS: PIPERACILLIN/TAZOBACTAM 2.25 GM in DEXTROSE 5% 50 ML IV SCH ×3 (05:23→20:58)
[2022-10-01] MEDS: FUROSEMIDE 40 MG/4 ML VIAL IVP SCH (08:29)
[2022-10-01] MEDS: NYSTATIN CRE 100 MU/GM 15 GM TUBE TP SCH ×2 (08:29→20:58)
[2022-10-01] MEDS: THERAHONEY GEL 42.5 GM TP SCH (13:00)
[2022-10-01] MEDS: NOREPINEPHRINE 8 MG in DEXTROSE 5% 250 ML IV PRN (15:04)
[2022-10-01] MEDS: DILTIAZEM 25 MG/5 ML VIAL IVP PRN (23:56)
[2022-10-02] VITALS (30 sets, daily range): BP systolic 83–119; BP diastolic 38–72; PULSE 84–151; RESP 13–21; TEMP 96–99.8; O2SAT 95–100
[2022-10-02] MEDS: Z-GUARD PASTE TP SCH ×2 (01:19→12:20)
[2022-10-02] MEDS: DILTIAZEM 25 MG/5 ML VIAL IVP PRN ×2 (03:00→11:52)
[2022-10-02] MEDS: PIPERACILLIN/TAZOBACTAM 2.25 GM in DEXTROSE 5% 50 ML IV SCH ×2 (05:00→12:19)
[2022-10-02 05:15] LABS: BASOPHILS % (AUTO) 0.2 % (0.0-2.0); EOSINOPHILS # (AUTO) 0.1 K/uL (0-0.4); EOSINOPHILS % (AUTO) 0.6 % (0.0-4.0); HEMOGLOBIN 7.8 g/dL (12.0-18.0); LYMPHOCYTES # (AUTO) 1.2 K/uL (2.0-11.5); LYMPHOCYTES % (AUTO) 13.7 % (20.5-51.1); MEAN CORPUSCULAR HEMOGLOBIN 29 pg (27-31); MEAN CORPUSCULAR HGB CONC 34 g/dL (33-37); MEAN CORPUSCULAR VOLUME 86.1 fL (80-94); MONOCYTES # (AUTO) 0.2 K/uL (0.8-1.0); MONOCYTES % (AUTO) 2.2 % (1.7-9.3); NEUTROPHILS # (AUTO) 7.5 K/uL (1.8-7.7); NEUTROPHILS % (AUTO) 83.3 % (42.2-75.2); PLATELET COUNT (AUTO) 54 K/uL (140-450); RED BLOOD CELL COUNT(AUTO) 2.67 MIL/uL (4.20-6.10); RED CELL DISTRIBUTION WIDTH 23.8 % (11.6-13.7)
[2022-10-02 06:16] LABS: ANION GAP 16.9 (8-16); CALCIUM 9.7 mg/dL (8.5-10.1); CARBON DIOXIDE 22.3 mmol/L (21-32); CHLORIDE 98 mmol/L (98-107); CREATININE 3.2 mg/dL (0.6-1.3); GLUCOSE 136 mg/dL (74-106); POTASSIUM 3.2 mmol/L (3.5-5.1); SODIUM SERUM 134 mmol/L (136-145)
[2022-10-02 06:18] LABS: UREA NITROGEN, BLOOD 80 mg/dL (7-18)
[2022-10-02] MEDS ORDERED: POTASSIUM CHLORIDE 20% 40 MEQ/15 ML UDC GT PRN (07:35)
[2022-10-02] MEDS ORDERED: NOREPINEPHRINE 4 MG/4 ML VIAL IV ONE (08:16)
[2022-10-02] MEDS: FUROSEMIDE 40 MG/4 ML VIAL IVP SCH (08:24)
[2022-10-02] MEDS: NYSTATIN CRE 100 MU/GM 15 GM TUBE TP SCH ×2 (08:24→20:32)
[2022-10-02] MEDS: DILTIAZEM 30 MG TAB PO SCH ×4 (08:24→20:33)
[2022-10-02] MEDS: NOREPINEPHRINE 8 MG in DEXTROSE 5% 250 ML IV PRN ×2 (08:26→22:43)
[2022-10-02] MEDS ORDERED: VANCOMYCIN 1,000 MG in DEXTROSE 5% 250 ML IV SCH (09:00)
[2022-10-02] MEDS ORDERED: METOPROLOL 5 MG/5 ML VIAL IV PRN (11:55)
[2022-10-02] MEDS: MIDODRINE 5 MG TAB PO SCH ×2 (12:20→20:33)
[2022-10-02] MEDS: THERAHONEY GEL 42.5 GM TP SCH (12:20)
[2022-10-02] MEDS: MEROPENEM 500 MG in NACL 0.9% 50 ML IV SCH (20:32)
[2022-10-03] VITALS (35 sets, daily range): BP systolic 100–161; BP diastolic 43–79; PULSE 69–92; RESP 13–22; TEMP 97.3–98.7; O2SAT 97–100
[2022-10-03] MEDS ORDERED: NOREPINEPHRINE 4 MG/4 ML VIAL IV ONE (00:19)
[2022-10-03] MEDS: NOREPINEPHRINE 8 MG in DEXTROSE 5% 250 ML IV PRN (00:29)
[2022-10-03] MEDS: Z-GUARD PASTE TP SCH ×3 (01:12→23:59)
[2022-10-03] MEDS: MIDODRINE 5 MG TAB PO SCH ×3 (04:19→22:30)
[2022-10-03 06:08] LABS: BASOPHILS % (AUTO) 0.4 % (0.0-2.0); EOSINOPHILS # (AUTO) 0.1 K/uL (0-0.4); EOSINOPHILS % (AUTO) 0.9 % (0.0-4.0); HEMATOCRIT 20.5 % (36-52); LYMPHOCYTES # (AUTO) 2.5 K/uL (2.0-11.5); LYMPHOCYTES % (AUTO) 22.3 % (20.5-51.1); MEAN CORPUSCULAR HEMOGLOBIN 29 pg (27-31); MEAN CORPUSCULAR HGB CONC 34 g/dL (33-37); MEAN CORPUSCULAR VOLUME 85.6 fL (80-94); MONOCYTES # (AUTO) 0.5 K/uL (0.8-1.0); MONOCYTES % (AUTO) 4.8 % (1.7-9.3); NEUTROPHILS # (AUTO) 7.9 K/uL (1.8-7.7); NEUTROPHILS % (AUTO) 71.6 % (42.2-75.2); PLATELET COUNT (AUTO) 64 K/uL (140-450); RED BLOOD CELL COUNT(AUTO) 2.39 MIL/uL (4.20-6.10); RED CELL DISTRIBUTION WIDTH 24.4 % (11.6-13.7)
[2022-10-03 06:10] LABS: ANION GAP 20.1 (8-16); CALCIUM 10.1 mg/dL (8.5-10.1); CARBON DIOXIDE 20.9 mmol/L (21-32); CHLORIDE 96 mmol/L (98-107); GLUCOSE 141 mg/dL (74-106); SODIUM SERUM 133 mmol/L (136-145)
[2022-10-03 06:14] LABS: UREA NITROGEN, BLOOD 94 mg/dL (7-18)
[2022-10-03 06:15] LABS: CREATININE 4.1 mg/dL (0.6-1.3)
[2022-10-03 06:33] LABS: HEMOGLOBIN 6.9 g/dL (12.0-18.0)
[2022-10-03 07:38] LABS: ANISOCYTOSIS 3+
[2022-10-03 07:39] LABS: HYPOCHROMASIA 1+
[2022-10-03] MEDS: FOAM DRESSING TP SCH (09:00)
[2022-10-03] MEDS: DILTIAZEM 30 MG TAB PO SCH ×4 (09:00→21:00)
[2022-10-03] MEDS: MEROPENEM 500 MG in NACL 0.9% 50 ML IV SCH ×2 (09:27→22:21)
[2022-10-03] MEDS: FUROSEMIDE 40 MG/4 ML VIAL IVP SCH (09:28)
[2022-10-03] MEDS: NYSTATIN CRE 100 MU/GM 15 GM TUBE TP SCH ×2 (11:34→22:33)
[2022-10-03] MEDS: THERAHONEY GEL 42.5 GM TP SCH (12:57)
[2022-10-03] MEDS: BLOOD GLUCOSE MONITORING 1 DEV DEV FS SCH ×3 (13:02→23:58)
[2022-10-03] MEDS: INSULIN LISPRO SLIDING SCALE 100 UNITS/ML VIAL SUBQ PRN (13:05)
[2022-10-03 15:09] LABS: HEMATOCRIT 25.6 % (36-52); HEMOGLOBIN 8.7 g/dL (12.0-18.0); MEAN CORPUSCULAR HEMOGLOBIN 29 pg (27-31); MEAN CORPUSCULAR HGB CONC 34 g/dL (33-37); MEAN CORPUSCULAR VOLUME 85.1 fL (80-94); PLATELET COUNT (AUTO) 66 K/uL (140-450); RED CELL DISTRIBUTION WIDTH 21.6 % (11.6-13.7); WHITE BLOOD COUNT (AUTO) 10.2 K/uL (4.8-10.8)
[2022-10-03 15:55] LABS: BASOPHILS % (MANUAL) 0 % (0-2); EOSINOPHILS % (MANUAL) 0 % (0-4); LYMPHOCYTES % (MANUAL) 22 % (20-46); MONOCYTES % (MANUAL) 1 % (5-12)
[2022-10-04] VITALS (30 sets, daily range): BP systolic 92–126; BP diastolic 37–71; PULSE 49–72; RESP 14–28; TEMP 96.3–98.5; O2SAT 97–100
[2022-10-04 04:29] LABS: HEMOGLOBIN 7.8 g/dL (12.0-18.0); MEAN CORPUSCULAR HEMOGLOBIN 29 pg (27-31); MEAN CORPUSCULAR HGB CONC 34 g/dL (33-37); MEAN CORPUSCULAR VOLUME 85.1 fL (80-94); PLATELET COUNT (AUTO) 62 K/uL (140-450); RED CELL DISTRIBUTION WIDTH 21.5 % (11.6-13.7); WHITE BLOOD COUNT (AUTO) 9.1 K/uL (4.8-10.8)
[2022-10-04 04:45] LABS: ANION GAP 17.4 (8-16); CALCIUM 10.3 mg/dL (8.5-10.1); CARBON DIOXIDE 22.3 mmol/L (21-32); CHLORIDE 96 mmol/L (98-107); GLUCOSE 154 mg/dL (74-106); POTASSIUM 3.7 mmol/L (3.5-5.1); SODIUM SERUM 132 mmol/L (136-145)
[2022-10-04] MEDS: MIDODRINE 5 MG TAB PO SCH ×3 (04:49→20:23)
[2022-10-04 04:57] LABS: BASOPHILS % (MANUAL) 0 % (0-2); EOSINOPHILS % (MANUAL) 1 % (0-4); LYMPHOCYTES % (MANUAL) 26 % (20-46); MONOCYTES % (MANUAL) 2 % (5-12); SMUDGE CELLS FEW
[2022-10-04 05:07] LABS: CREATININE 4.2 mg/dL (0.6-1.3); UREA NITROGEN, BLOOD 113 mg/dL (7-18)
[2022-10-04] MEDS: BLOOD GLUCOSE MONITORING 1 DEV DEV FS SCH ×4 (05:46→23:42)
[2022-10-04] MEDS ORDERED: VANCOMYCIN PER PHARMACY MC PRN (07:25)
[2022-10-04] MEDS: MEROPENEM 500 MG in NACL 0.9% 50 ML IV SCH ×2 (08:37→20:22)
[2022-10-04] MEDS: DILTIAZEM 30 MG TAB PO SCH ×4 (09:00→20:25)
[2022-10-04] MEDS ORDERED: VANCOMYCIN 750 MG in DEXTROSE 5% 250 ML IV SCH (09:00)
[2022-10-04] MEDS: NYSTATIN CRE 100 MU/GM 15 GM TUBE TP SCH ×2 (09:05→20:26)
[2022-10-04] MEDS ORDERED: VANCOMYCIN 1,000 MG VIAL IV SCH (11:30)
[2022-10-04] MEDS: PANTOPRAZOLE 40 MG INJ VIAL IVP SCH (11:52)
[2022-10-04] MEDS: INSULIN LISPRO SLIDING SCALE 100 UNITS/ML VIAL SUBQ PRN (12:03)
[2022-10-04] MEDS: METOCLOPRAMIDE 10 MG/2 ML INJ VIAL IVP SCH ×2 (12:05→20:24)
[2022-10-04] MEDS: THERAHONEY GEL 42.5 GM TP SCH (12:16)
[2022-10-04] MEDS: Z-GUARD PASTE TP SCH (12:17)
[2022-10-04] MEDS: ALBUMIN HUMAN 25% 100 ML IV SCH ×2 (15:11→20:23)
[2022-10-04] MEDS: FUROSEMIDE 40 MG/4 ML VIAL IVP SCH (16:02)
[2022-10-05] VITALS (20 sets, daily range): BP systolic 95–134; BP diastolic 37–54; PULSE 44–59; RESP 14–19; TEMP 96.1–97.6; O2SAT 99–100
[2022-10-05] MEDS: Z-GUARD PASTE TP SCH ×2 (01:38→13:57)
[2022-10-05] MEDS: MIDODRINE 5 MG TAB PO SCH ×2 (04:29→13:56)
[2022-10-05] MEDS: METOCLOPRAMIDE 10 MG/2 ML INJ VIAL IVP SCH ×2 (04:30→13:56)
[2022-10-05 05:18] LABS: BASOPHILS % (AUTO) 0.4 % (0.0-2.0); EOSINOPHILS # (AUTO) 0.1 K/uL (0-0.4); EOSINOPHILS % (AUTO) 1.2 % (0.0-4.0); HEMATOCRIT 20.7 % (36-52); HEMOGLOBIN 7.1 g/dL (12.0-18.0); LYMPHOCYTES # (AUTO) 1.3 K/uL (2.0-11.5); LYMPHOCYTES % (AUTO) 15.6 % (20.5-51.1); MEAN CORPUSCULAR HEMOGLOBIN 30 pg (27-31); MEAN CORPUSCULAR HGB CONC 34 g/dL (33-37); MEAN CORPUSCULAR VOLUME 86.2 fL (80-94); MONOCYTES # (AUTO) 0.2 K/uL (0.8-1.0); MONOCYTES % (AUTO) 2.5 % (1.7-9.3); NEUTROPHILS # (AUTO) 6.7 K/uL (1.8-7.7); NEUTROPHILS % (AUTO) 80.3 % (42.2-75.2); PLATELET COUNT (AUTO) 52 K/uL (140-450); RED CELL DISTRIBUTION WIDTH 21.6 % (11.6-13.7); WHITE BLOOD COUNT (AUTO) 8.3 K/uL (4.8-10.8)
[2022-10-05 05:25] LABS: ANION GAP 17.7 (8-16); CALCIUM 10.8 mg/dL (8.5-10.1); CARBON DIOXIDE 22.8 mmol/L (21-32); CHLORIDE 95 mmol/L (98-107); GLUCOSE 151 mg/dL (74-106); POTASSIUM 3.5 mmol/L (3.5-5.1); SODIUM SERUM 132 mmol/L (136-145)
[2022-10-05 05:43] LABS: CREATININE 4.3 mg/dL (0.6-1.3); UREA NITROGEN, BLOOD 126 mg/dL (7-18)
[2022-10-05] MEDS: BLOOD GLUCOSE MONITORING 1 DEV DEV FS SCH ×2 (05:53→12:31)
[2022-10-05] MEDS ORDERED: PANTOPRAZOLE 40 MG INJ VIAL IVP SCH (09:00)
[2022-10-05] MEDS: MEROPENEM 500 MG in NACL 0.9% 50 ML IV SCH (09:41)
[2022-10-05] MEDS: PANTOPRAZOLE 40 MG INJ VIAL IVP SCH (09:52)
[2022-10-05] MEDS: FUROSEMIDE 40 MG/4 ML VIAL IVP SCH (09:52)
[2022-10-05] MEDS: DILTIAZEM 30 MG TAB PO SCH ×3 (09:53→17:17)
[2022-10-05] MEDS: THERAHONEY GEL 42.5 GM TP SCH (13:57)
[2022-10-05] MEDS ORDERED: DILT-15 PO (14:47)
[2022-10-05] MEDS ORDERED: ERTA1VIA2 IV (14:47)
[2022-10-05] MEDS ORDERED: ERTAPENEM SODIUM 500 MG in NACL 0.9% 50 ML IV SCH (17:00)
[2022-10-05] MEDS ORDERED: ERTAPENEM SODIUM 1,000 MG in NACL 0.9% 50 ML IV SCH (17:00)
[2022-10-15] MEDS ORDERED: [UNRECOGNIZED DRUG - CODE] IV ×2 (09:23→09:25)
== END 2022-10-05 17:55 | DRG 720 ==
LOC: MED 23:55 → MMU 09-28 02:35 → MIC 09-28 02:35 → MTU 10-05 07:10
PROVIDERS: ADMIT Hospitalist; ATTEND Hospitalist
PROC: 5A1955Z Respiratory Ventilation, Greater than 96 Consecutive Hours (ICD-10-PCS; principal; 2022-09-28)
PROC: 30233N1 Transfusion of Nonautologous Red Blood Cells into Peripheral Vein, Percutaneous Approach (ICD-10-PCS; 2022-09-28)
PROC: 02HV33Z Insertion of Infusion Device into Superior Vena Cava, Percutaneous Approach (ICD-10-PCS; 2022-09-29)
PROC: B548ZZA Ultrasonography of Superior Vena Cava, Guidance (ICD-10-PCS; 2022-09-29)
DX: A41.9 Sepsis, unspecified organism (principal); N17.0 Acute kidney failure with tubular necrosis; R65.21 Severe sepsis with septic shock; J18.9 Pneumonia, unspecified organism; G93.49 Other encephalopathy; L89.153 Pressure ulcer of sacral region, stage 3; J44.0 Chronic obstructive pulmonary disease with (acute) lower respiratory infection; E87.20 Acidosis, unspecified; G93.1 Anoxic brain damage, not elsewhere classified; J96.11 Chronic respiratory failure with hypoxia; N39.0 Urinary tract infection, site not specified; E87.1 Hypo-osmolality and hyponatremia; Z99.11 Dependence on respirator [ventilator] status; B96.4 Proteus (mirabilis) (morganii) as the cause of diseases classified elsewhere; D64.9 Anemia, unspecified; I12.9 Hypertensive chronic kidney disease with stage 1 through stage 4 chronic kidney disease, or unspecified chronic kidney disease; N18.9 Chronic kidney disease, unspecified; Z93.0 Tracheostomy status; Z79.1 Long term (current) use of non-steroidal anti-inflammatories (NSAID); Z79.899 Other long term (current) drug therapy
CPT/HCPCS: 36415; 36430; 71045; 80048; 80053; 80202; 81001; 82948; 83605; 83690; 83735; 84484; 85025; 85610; 86886; 86900; 86901; 86920; 87040; 87081; 87086; 93005; 93970; 94003; 96365; 96367; 99291; 99292; C9113; J0692; J1335; J1815; J1940; J2185; J2270; J2543; J2765; J3370; J3490; J7060; P9016; P9046; Q0092

== ENCOUNTER 2022-11-14 22:25 | Inpatient (IN) | payer OTHER ==
[~2022-11-14] VITALS: Ht 180.3 cm; Wt 94.8 kg
[~2022-11-14 22:25] MED LIST changes: +BISA-218 RC; +DILT-15 PO; -HYDR-1102 PO; +MAGN400S60 PO; -METH4TAB1 PO; -PIPE50SO5 IV
[2022-11-14 22:26] VITALS: BP 98/54; PULSE 71; RESP 14; O2SAT 100
[2022-11-14] MEDS ORDERED: cefTRIAXone 1,000 MG in DEXT 5% MINI-BAG PLUS 50 ML IV ONE (22:35)
[2022-11-14] MEDS ORDERED: NACL 0.9% 1,000 ML IV ONE (22:35)
[2022-11-14] MEDS ORDERED: cefTRIAXone 1,000 MG VIAL ONE (22:39)
[2022-11-14] MEDS ORDERED: ATROPINE 1 MG/10 ML SYR IVP ONE (22:45)
[2022-11-14 22:59] LABS: HEMATOCRIT 22.4 % (36-52); HEMOGLOBIN 7.1 g/dL (12.0-18.0); MEAN CORPUSCULAR HEMOGLOBIN 30 pg (27-31); MEAN CORPUSCULAR HGB CONC 32 g/dL (33-37); PLATELET COUNT (AUTO) 53 K/uL (140-450); RED BLOOD CELL COUNT(AUTO) 2.41 MIL/uL (4.20-6.10); RED CELL DISTRIBUTION WIDTH 21.4 % (11.6-13.7); WHITE BLOOD COUNT (AUTO) 13.6 K/uL (4.8-10.8)
[2022-11-14 22:59] LABS: APPEARANCE,URINE CLEAR (CLEAR); BILIRUBIN,URINE 3+ (NEGATIVE); BLOOD, URINE 3+ (NEGATIVE); COLOR,URINE YELLOW (YELLOW); LEUKOCYTE ESTERASE ,URINE 3+ (NEGATIVE); NITRITE, URINE POSITIVE (NEGATIVE); PROTEIN,URINE 3+ (NEGATIVE); UGLUCOSE TRACE (NEGATIVE); UROBILINOGEN,URINE >=8.0 EU/dL (0.2 - 1)
[2022-11-14 23:05] VITALS: PULSE 61; O2SAT 100
[2022-11-14 23:26] LABS: LYMPHOCYTES % (MANUAL) 48 % (20-46)
[2022-11-14 23:27] LABS: CORRECTED WHITE BLOOD COUNT 12.5 K/uL (4.5-11.0); METAMYELOCYTES % 2 % (0-0); MONOCYTES % (MANUAL) 4 % (5-12); MYELOCYTES % 1 % (0-0)
[2022-11-14 23:32] LABS: LACTIC ACID 11.8 mmol/L (0.4-2.0)
[2022-11-14 23:38] LABS: RBC,URINE TOO NUMEROUS TO COUN /HPF (0-5); WBC,URINE TOO MANY TO COUNT /HPF (0-5)
[2022-11-14 23:39] LABS: ALANINE AMINOTRANSFERASE 102 U/L (12-78); ALBUMIN 1.6 g/dL (3.4-5.0); ALKALINE PHOSPHATASE 587 U/L (50-136); ANION GAP 25.2 (8-16); ASPARTATE AMINOTRANSFERASE 233 U/L (15-37); CALCIUM 11.7 mg/dL (8.5-10.1); CARBON DIOXIDE 13.7 mmol/L (21-32); CHLORIDE 81 mmol/L (98-107); GLUCOSE 107 mg/dL (74-106); POTASSIUM 5.9 mmol/L (3.5-5.1); TOTAL BILIRUBIN 0.6 mg/dL (0.0-1.0); TOTAL PROTEIN, SERUM 6.1 g/dL (6.4-8.2)
[2022-11-14 23:43] LABS: SODIUM SERUM 114 mmol/L (136-145); UREA NITROGEN, BLOOD 100 mg/dL (7-18)
[2022-11-14 23:43] LABS: ICTOTEST NEGATIVE (NEGATIVE)
[2022-11-14 23:44] LABS: BACTERIA,URINE 10-30 (MOD) /HPF (None Seen); SQUAMOUS EPITHELIAL CELL,UR 4-10 (MOD) /LPF (0-3 (FEW))
[2022-11-15] VITALS (26 sets, daily range): BP systolic 69–125; BP diastolic 23–66; PULSE 47–81; RESP 14–22; TEMP 85.3–88.3; O2SAT 8–100
[2022-11-15] MEDS ORDERED: NOREPINEPHRINE 4 MG in DEXTROSE 5% 250 ML IV ONE ×2
[2022-11-15] MEDS ORDERED: NOREPINEPHRINE 4 MG/4 ML VIAL IV ONE ×2 (00:04→00:10)
[2022-11-15] MEDS ORDERED: NOREPINEPHRINE 8 MG in DEXTROSE 5% 250 ML IV PRN (00:15)
[2022-11-15] MEDS ORDERED: ACETAMINOPHEN 325 MG TAB PO PRN (00:55)
[2022-11-15] MEDS ORDERED: HYDROcodone/APAP 5/325 MG 1 TAB TAB PO PRN (00:55)
[2022-11-15] MEDS ORDERED: MORPHINE SULFATE 2 MG/ML SYR IVP PRN (00:55)
[2022-11-15] MEDS ORDERED: ONDANSETRON 4 MG/2 ML VIAL IVP PRN (00:55)
[2022-11-15] MEDS ORDERED: ALBUTEROL SULFATE/IPRATROPIU 3 ML SOL IH STA (01:12)
[2022-11-15] MEDS ORDERED: DEXTROSE 50% 50 ML SYR IVP ONE ×2 (01:15→03:16)
[2022-11-15] MEDS ORDERED: INSULIN REGULAR, HUMAN 100 UNIT/ML VIAL IVP ONE (01:15)
[2022-11-15] MEDS ORDERED: CALCIUM GLUC 1 GM/50 mL NS BAG 50 ML IV ONE ×2 (01:45→03:18)
[2022-11-15] MEDS ORDERED: SODIUM BICARBONATE 8.4% PFS 50 MEQ/50 ML SYR IVP ONE ×4 (01:45→08:03)
[2022-11-15] MEDS ORDERED: SODIUM POLYSTYRENE 15 GM/60 ML UDBTL GT ONE (01:45)
[2022-11-15] MEDS ORDERED: NACL 0.9% 1,000 ML IV SCH (01:50)
[2022-11-15] MEDS ORDERED: NACL 0.9% 1,000 ML IV ONE (01:55)
[2022-11-15] MEDS ORDERED: ALBUMIN HUMAN 25% 100 ML IV ONE (01:55)
[2022-11-15] MEDS ORDERED: SODIUM POLYSTYRENE 15 GM/60 ML UDBTL ONE ×2 (03:11→03:26)
[2022-11-15 03:41] LABS: HEMATOCRIT 23.4 % (36-52); HEMOGLOBIN 7.2 g/dL (12.0-18.0); MEAN CORPUSCULAR HEMOGLOBIN 29 pg (27-31); MEAN CORPUSCULAR HGB CONC 31 g/dL (33-37); MEAN CORPUSCULAR VOLUME 94.1 fL (80-94); PLATELET COUNT (AUTO) 79 K/uL (140-450); RED BLOOD CELL COUNT(AUTO) 2.49 MIL/uL (4.20-6.10); RED CELL DISTRIBUTION WIDTH 21.3 % (11.6-13.7)
[2022-11-15 03:57] LABS: ALANINE AMINOTRANSFERASE 263 U/L (12-78); ALBUMIN 1.6 g/dL (3.4-5.0); ALKALINE PHOSPHATASE 670 U/L (50-136); ANION GAP 28.1 (8-16); ASPARTATE AMINOTRANSFERASE 692 U/L (15-37); CALCIUM 11.2 mg/dL (8.5-10.1); CARBON DIOXIDE 11.2 mmol/L (21-32); CHLORIDE 81 mmol/L (98-107); TOTAL BILIRUBIN 0.9 mg/dL (0.0-1.0); TOTAL PROTEIN, SERUM 6.2 g/dL (6.4-8.2)
[2022-11-15 04:03] LABS: GLUCOSE 40 mg/dL (74-106); POTASSIUM 6.3 mmol/L (3.5-5.1); SODIUM SERUM 114 mmol/L (136-145)
[2022-11-15 04:05] LABS: CREATININE 4.1 mg/dL (0.6-1.3); UREA NITROGEN, BLOOD 96 mg/dL (7-18)
[2022-11-15 04:08] LABS: WHITE BLOOD COUNT (AUTO) 31.5 K/uL (4.8-10.8)
[2022-11-15 04:09] LABS: CORRECTED WHITE BLOOD COUNT 28.9 K/uL (4.5-11.0); EOSINOPHILS % (MANUAL) 1 % (0-4); LYMPHOCYTES % (MANUAL) 6 % (20-46); METAMYELOCYTES % 5 % (0-0); MONOCYTES % (MANUAL) 3 % (5-12); MYELOCYTES % 3 % (0-0)
[2022-11-15] MEDS ORDERED: DEXT 5% /NACL 0.9% 1,000 ML IV SCH (04:25)
[2022-11-15] MEDS ORDERED: PIPERACILLIN/TAZOBACTAM 2.25 GM in DEXTROSE 5% 50 ML IV SCH (05:00)
[2022-11-15] MEDS ORDERED: DOPamine 400 MG/D5W PREMIX 250 ML IV ONE (05:38)
[2022-11-15] MEDS ORDERED: MIDODRINE 5 MG TAB GT SCH (06:00)
[2022-11-15] MEDS: DOPamine 400 MG/D5W PREMIX 250 ML IV PRN ×2 (06:21→09:40)
[2022-11-15] MEDS ORDERED: PIPERACILLIN/TAZOBACTAM 2.25 GM VIAL IV ONE (06:28)
[2022-11-15] MEDS ORDERED: SODIUM ZIRCONIUM CYCLOSILICATE 10 GM POWD.PACK GT ONE (06:45)
[2022-11-15] MEDS ORDERED: NACL 3% 150 ML IV ONE (06:45)
[2022-11-15] MEDS ORDERED: SODIUM BICARBONATE 8.4% 150 MEQ in DEXTROSE 5% 1,000 ML IV SCH (06:55)
[2022-11-15 07:26] LABS: BLOOD GAS HCO3 7.5 mmol/L (22-26); BLOOD GAS PCO2 35.3 mmHg (35-45); BLOOD GAS PH 6.945 (7.35-7.45); BLOOD GAS PO2 357.8 mmHg (75-100)
[2022-11-15 07:27] LABS: BLOOD GAS O2 SAT% 99.7 % (92.0-98.5)
[2022-11-15] MEDS ORDERED: SODIUM POLYSTYRENE 15 GM/60 ML UDBTL PO ONE (07:35)
[2022-11-15] MEDS: DEXTROSE 50% 50 ML SYR IVP PRN ×2 (08:08→09:24)
[2022-11-15] MEDS ORDERED: PANTOPRAZOLE 40 MG INJ VIAL IVP SCH (09:00)
[2022-11-15] MEDS ORDERED: ALBUTEROL 0.083% 2.5 MG/3 ML NEBU INH SCH ×3 (09:30→11:00)
[2022-11-15] MEDS ORDERED: SODIUM POLYSTYRENE 15 GM/60 ML UDBTL PO SCH (09:30)
[2022-11-15 09:59] LABS: CALCIUM 11.2 mg/dL (8.5-10.1); CARBON DIOXIDE 10.7 mmol/L (21-32); CHLORIDE 83 mmol/L (98-107); CREATININE 3.9 mg/dL (0.6-1.3); GLUCOSE 84 mg/dL (74-106)
[2022-11-15 10:04] LABS: SODIUM SERUM 117 mmol/L (136-145)
[2022-11-15 10:05] LABS: POTASSIUM 6.7 mmol/L (3.5-5.1)
[2022-11-15 10:06] LABS: UREA NITROGEN, BLOOD 95 mg/dL (7-18)
[2022-11-15] MEDS ORDERED: EPINEPHrine 1 mg/mL 1 MG in DEXTROSE 5% 250 ML IV PRN (11:10)
[2022-11-15] MEDS ORDERED: SODIUM POLYSTYRENE 15 GM/60 ML UDBTL PR SCH (11:30)
[2022-11-15] MEDS ORDERED: EPINEPHrine PFS 0.1 MG/ML SYR IVP ONE (11:42)
[2022-11-15] MEDS ORDERED: BLOOD GLUCOSE MONITORING 1 DEV DEV FS SCH (12:00)
[2022-11-15] MEDS ORDERED: metroNIDAZOLE 500 MG/NS PREMIX 100 ML IV SCH (13:00)
[2022-11-16] MEDS ORDERED: SODIUM BICARBONATE 8.4% 150 MEQ in DEXTROSE 5% 1,000 ML IV SCH (15:00)
== END 2022-11-15 11:42 | DRG 720 ==
LOC: MED 22:25 → MIC 11-15 00:53
PROVIDERS: ADMIT Student in an Organized Health Care Education/Training Program; ATTEND Student in an Organized Health Care Education/Training Program
PROC: 5A1935Z Respiratory Ventilation, Less than 24 Consecutive Hours (ICD-10-PCS; principal; 2022-11-15)
PROC: 5A12012 Performance of Cardiac Output, Single, Manual (ICD-10-PCS; 2022-11-15)
DX: A41.9 Sepsis, unspecified organism (principal); J96.21 Acute and chronic respiratory failure with hypoxia; I46.9 Cardiac arrest, cause unspecified; R65.21 Severe sepsis with septic shock; K21.9 Gastro-esophageal reflux disease without esophagitis; N39.0 Urinary tract infection, site not specified; E87.1 Hypo-osmolality and hyponatremia; E87.5 Hyperkalemia; E87.20 Acidosis, unspecified; Z93.0 Tracheostomy status; Z93.1 Gastrostomy status; Z86.73 Personal history of transient ischemic attack (TIA), and cerebral infarction without residual deficits; Z79.1 Long term (current) use of non-steroidal anti-inflammatories (NSAID); Z79.899 Other long term (current) drug therapy; Z79.4 Long term (current) use of insulin; N18.6 End stage renal disease; Z99.2 Dependence on renal dialysis; E11.22 Type 2 diabetes mellitus with diabetic chronic kidney disease; I13.2 Hypertensive heart and chronic kidney disease with heart failure and with stage 5 chronic kidney disease, or end stage renal disease; I50.9 Heart failure, unspecified
CPT/HCPCS: 36415; 36600; 70450; 71045; 80048; 80053; 81001; 82803; 82948; 83605; 83880; 84484; 85025; 87040; 87081; 87086; 92950; 93005; 94002; 94003; 96365; 96375; 99291; C9113; J0171; J0461; J0610; J0696; J1265; J1815; J2543; J3490; J7060; J7613; P9046; Q0092